=== PATIENT | female | born 1985 | race Caucasian/White ===

== ENCOUNTER → 2016-12-28 | Outpatient (CLI) | payer OTHER ==
--- NOTE | 2016-12-28 11:52 | XR ---
EXAMINATION TYPE: 2 views left wrist. 2 views left hand. DATE OF EXAM: 12/28/2016 11:36 AM COMPARISON: NONE HISTORY: 31-year-old female medial sided lump at the wrist, pain. FINDINGS: Left wrist: Minimal negative ulnar variance. Radiocarpal and distal radioulnar joints as well as the midcarpal co mpartment appear intact. No acute fracture, subluxation, or dislocation. Left hand: Joint spaces are preserved without periostitis or osteolysis. No soft tissue calcifications. No acute fracture or dislocation. IMPRESSION: Left wrist and hand without acute osseous abnormality seen.
== END | disposition home or self-care (01) ==
LOC: RADXRMAIN 11:18
PROVIDERS: ATTEND Physical Medicine & Rehabilitation
DX: M25.532 Pain in left wrist (principal)

== ENCOUNTER 2017-07-05 15:31 | Emergency (ER) | payer OTHER ==
[2017-07-05] MEDS ORDERED: ONDANSETRON 4 MG/2 ML VIAL IVP STA (16:01)
[2017-07-05] MEDS ORDERED: SODIUM CHLORIDE 0.9% 1,000 ML IV STA (16:01)
--- NOTE | 2017-07-05 16:12 | ED ---
General Adult HPI - General Chief complaint: Abdominal Pain Stated complaint: Abd Pain Time Seen by Provider: 07/05/17 15:51 Source: patient, RN notes reviewed Mode of arrival: ambulatory Limitations: no limitations - History of Present Illness Initial comments: Patient 32-year-old female who presents emergency room today with a chief complaint of bilateral flank pain over the last week. She does admit that she' s noticed foul-smelling urine. She states she has noticed that she's been running a fever over the last few days. Patient wasn't feeling nauseated. She does admit that she's been using [place] at home for the pain persisted lasted for 2 hours ago. She denies any other complaints or symptoms at this time. Patient denies any recent fever, chills, shortness of breath, chest pain, numbness or tingling, hematuria, constipation or diarrhea, headaches or visual changes, or any other complaints. - Related Data Home Medications Medication Instructions Recorded Confirmed Albuterol Inhaler [Ventolin Hfa 1 - 2 puff INHALATION RT-Q6H PRN 07/05/17 Inhaler] HYDROcodone/APAP 10-325MG [[place] 1 tab PO QID PRN 07/05/17 07/05/17 10-325] Previous Rx's Medication Instructions Recorded Ciprofloxacin HCl [Cipro] 500 mg PO Q12HR #28 day 07/05/17 Phenazopyridine [Pyridium] 100 mg PO TID 3 Days 07/05/17 Allergies Allergy/AdvReac Type Severity Reaction Status Date / Time naproxen AdvReac Nausea & Verified 07/05/17 16:16 Vomiting Review of Systems ROS Statement: Those systems with pertinent positive or pertinent negative responses have been documented in the HPI. ROS Other: All systems not noted in ROS Statement are negative. Past Medical History Past Medical History: COPD, GERD/Reflux, Thyroid Disorder Additional Past Medical History / Comment(s): 06/19/15 Pt presented to [facility] ER with R side flank pain starting yesterday. She has fever today. She believed she had a UTI- she has urgency and frequency. She has also been nauseated. Other HX: enlarged thryoid, emphysema, herniated discs, DDD, scoliosis, chronic back pain, sleep disturbance-sleep paralysis. History of Any Multi-Drug Resistant Organisms: None Reported Past Surgical History: No Surgical Hx Reported Additional Past Surgical History / Comment(s): Leep excision of the ect/ endocervix with colposcopy for high grade dysplasia of the cervix Past Anesthesia/Blood Transfusion Reactions: No Reported Reaction Past Psychological History: Anxiety Smoking Status: Current every day smoker Past Alcohol Use History: None Reported Past Drug Use History: None Reported - Past Family History Father Family Medical History: CVA/TIA, Diabetes Mellitus, Hypertension, Myocardial Infarction ([place]) Mother Family Medical History: Diabetes Mellitus, Hypertension General Exam - General Exam Comments Initial Comments: General: The patient is awake and alert, in no distress, and does not appear acutely ill. Eye: Pupils are equal, round and reactive to light, extra-ocular movements are intact. No nystagmus. There is normal conjunctiva bilaterally. No signs of icterus. Ears, nose, mouth and throat: There are moist mucous membranes and no oral lesions. Neck: The neck is supple, there is no tenderness or JVD. Cardiovascular: There is a regular rate and rhythm. No murmur, rub or gallop is appreciated. Respiratory: Lungs are clear to auscultation, respirations are non-labored, breath sounds are equal. No wheezes, stridor, rales, or rhonchi. Gastrointestinal: Normal exam. Normal bowel sounds. Abdomen soft on palpation. Patient does have tenderness greater in the right CVA and left. Mild tenderness suprapubic over the bladder. No rebound tenderness. No guarding. Musculoskeletal: Normal ROM, no tenderness. Strength 5/5. Sensation intact. Pulses equal bilaterally 2+. Neurological: A&O x 3. CN II-XII intact, There are no obvious motor or sensory deficits. Coordination appears grossly intact. Speech is normal. Skin: Skin is warm and dry and no rashes or lesions are noted. Psychiatric: Cooperative, appropriate mood & affect, normal judgment. Limitations: no limitations Course Vital Signs 07/05/17 07/05/17 15:43 18:01 Temperature 101.7 F H 98.1 F Pulse Rate 107 H 79 Respiratory 20 16 Rate Blood Pressure 125/83 102/57 O2 Sat by Pulse 97 98 Oximetry Medical Decision Making - Medical Decision Making Case discussed in detail with attending physician Dr. Vargas. Patient reexamined at this time shows no signs of distress resting comfortably. Patient 's labs been reviewed does show urinary tract infection. No elevated white count. Does have a low-grade fever. Patient doing much better after IV fluids. Given 2 g Rocephin here in the emergency room. Feels comfortable being discharged home. Advised to follow-up with family doctor next 1-2 days or return here to the emergency room if any symptoms increase or worsen. Patient states understanding and is in agreement. - Lab Data Result diagrams: 07/05/17 16:25 07/05/17 16:25 Lab Results 07/05/17 07/05/17 07/05/17 Range/Units 16:25 16:25 16:25 WBC 9.0 (3.8-10.6) k/uL RBC 4.14 (3.80-5.40) m/uL Hgb 13.2 (11.4-16.0) gm/dL Hct 38.9 (34.0-46.0) % MCV 93.8 (80.0-100.0) fL MCH 31.8 (25.0-35.0) pg MCHC 33.9 (31.0-37.0) g/dL RDW 13.5 (11.5-15.5) % Plt Count 300 (150-450) k/uL Neutrophils % 59 % Lymphocytes % 31 % Monocytes % 6 % Eosinophils % 1 % Basophils % 1 % Neutrophils # 5.3 (1.3-7.7) k/uL Lymphocytes # 2.8 (1.0-4.8) k/uL Monocytes # 0.5 (0-1.0) k/uL Eosinophils # 0.1 (0-0.7) k/uL Basophils # 0.1 (0-0.2) k/uL Sodium 138 (137-145) mmol/L Potassium 4.1 (3.5-5.1) mmol/L Chloride 106 (98-107) mmol/L Carbon Dioxide 21 L (22-30) mmol/L Anion Gap 11 mmol/L BUN 10 (7-17) mg/dL Creatinine 0.80 (0.52-1.04) mg/dL Est GFR (MDRD) Af Amer >60 (>60 ml/min/1.73 sqM) Est GFR (MDRD) Non-Af >60 (>60 ml/min/1.73 sqM) Glucose 105 H (74-99) mg/dL Calcium 9.0 (8.4-10.2) mg/dL Total Bilirubin 0.4 (0.2-1.3) mg/dL AST 29 (14-36) U/L ALT 56 H (9-52) U/L Alkaline Phosphatase 45 (38-126) U/L Total Protein 6.9 (6.3-8.2) g/dL Albumin 4.1 (3.5-5.0) g/dL Amylase 79 (30-110) U/L Lipase 137 (23-300) U/L Urine Color Urine Appearance (Clear) Urine pH (5.0-8.0) Ur Specific [place] (1.001-1.035) Urine Protein (Negative) Urine Glucose (UA) (Negative) Urine Ketones (Negative) Urine Blood (Negative) Urine Nitrite (Negative) Urine Bilirubin (Negative) Urine Urobilinogen (<2.0) mg/dL Ur Leukocyte Esterase (Negative) Urine RBC (0-5) /hpf Urine WBC (0-5) /hpf Ur Squamous Epith Cells (0-4) /hpf Urine Bacteria (None) /hpf Urine Mucus (None) /hpf Urine HCG, Qual Not Detected (Not Detectd) 07/05/17 Range/Units 16:25 WBC (3.8-10.6) k/uL RBC (3.80-5.40) m/uL Hgb (11.4-16.0) gm/dL Hct (34.0-46.0) % MCV (80.0-100.0) fL MCH (25.0-35.0) pg MCHC (31.0-37.0) g/dL RDW (11.5-15.5) % Plt Count (150-450) k/uL Neutrophils % % Lymphocytes % % Monocytes % % Eosinophils % % Basophils % % Neutrophils # (1.3-7.7) k/uL Lymphocytes # (1.0-4.8) k/uL Monocytes # (0-1.0) k/uL Eosinophils # (0-0.7) k/uL Basophils # (0-0.2) k/uL Sodium (137-145) mmol/L Potassium (3.5-5.1) mmol/L Chloride (98-107) mmol/L Carbon Dioxide (22-30) mmol/L Anion Gap mmol/L BUN (7-17) mg/dL Creatinine (0.52-1.04) mg/dL Est GFR (MDRD) Af Amer (>60 ml/min/1.73 sqM) Est GFR (MDRD) Non-Af (>60 ml/min/1.73 sqM) Glucose (74-99) mg/dL Calcium (8.4-10.2) mg/dL Total Bilirubin (0.2-1.3) mg/dL AST (14-36) U/L ALT (9-52) U/L Alkaline Phosphatase (38-126) U/L Total Protein (6.3-8.2) g/dL Albumin (3.5-5.0) g/dL Amylase (30-110) U/L Lipase (23-300) U/L Urine Color Yellow Urine Appearance Cloudy H (Clear) Urine pH 6.0 (5.0-8.0) Ur Specific [place] 1.018 (1.001-1.035) Urine Protein Negative (Negative) Urine Glucose (UA) Negative (Negative) Urine Ketones Negative (Negative) Urine Blood Trace H (Negative) Urine Nitrite Negative (Negative) Urine Bilirubin Negative (Negative) Urine Urobilinogen <2.0 (<2.0) mg/dL Ur Leukocyte Esterase Large H (Negative) Urine RBC 11 H (0-5) /hpf Urine WBC 118 H (0-5) /hpf Ur Squamous Epith Cells 1 (0-4) /hpf Urine Bacteria Rare H (None) /hpf Urine Mucus Few H (None) /hpf Urine HCG, Qual (Not Detectd) Disposition Clinical Impression: Acute pyelonephritis Disposition: HOME SELF-CARE Condition: Good Instructions: Urinary Tract Infection in Women (ED) Additional Instructions: Please use medication as discussed. Please follow-up with family doctor in the next 2 days. Please return to emergency room if the symptoms increase or worsen or for any other concerns. Prescriptions: Ciprofloxacin HCl [Cipro] 500 mg PO Q12HR #28 day Phenazopyridine [Pyridium] 100 mg PO TID 3 Days Referrals: None,Stated [Primary Care Provider] - 1-2 days Jaylin Morel MD [STAFF PHYSICIAN] - 1-2 days Time of Disposition: 18:17
[2017-07-05] MEDS ORDERED: IBUPROFEN IV 600 MG in SODIUM CHLORIDE 0.9% 250 ML IV ONE (16:30)
[2017-07-05 16:45] LABS: Basophils # (A) 0.1 k/uL (0-0.2); Basophils % (A) 1 %; CH 32.7; CHCM 34.9; Eosinophils # (A) 0.1 k/uL (0-0.7); Eosinophils % (A) 1 %; HCT 38.9 % (34.0-46.0); HDW 2.26; HGB 13.2 gm/dL (11.4-16.0); Luc # (Auto) 0.24; Luc % (Auto) 3; Lymphocytes # (A) 2.8 k/uL (1.0-4.8); Lymphocytes % (A) 31 %; MCH 31.8 pg (25.0-35.0); MCHC 33.9 g/dL (31.0-37.0); MCV 93.8 fL (80.0-100.0); Mean Platelet Volume 7.6; Monocytes # (A) 0.5 k/uL (0-1.0); Monocytes % (A) 6 %; Neutrophils # (A) 5.3 k/uL (1.3-7.7); Neutrophils % (A) 59 %; RBC 4.14 m/uL (3.80-5.40); RDW 13.5 % (11.5-15.5); WBC (Perox) 9.13
[2017-07-05 16:57] LABS: ALT 56 U/L (9-52); AST 29 U/L (14-36); Alkaline Phosphatase 45 U/L (38-126); Amylase 79 U/L (30-110); Anion Gap 11 mmol/L; Appearance,Urine Cloudy (Clear); Bacteria,Urine Rare /hpf; Bilirubin,Urine Negative (Negative); Blood Urea Nitrogen 10 mg/dL (7-17); Carbon Dioxide 21 mmol/L (22-30); Chloride 106 mmol/L (98-107); Glucose 105 mg/dL (74-99); Glucose,Urine (UA) Negative (Negative); Ketones,Urine Negative (Negative); Leukocyte Esterase,Urine Large (Negative); Mucus,Urine Few /hpf; Nitrite,Urine Negative (Negative); Non-African American GFR(MDRD) >60 (>60 ml/min/1.73 sqM); Particle Count 9088; Potassium 4.1 mmol/L (3.5-5.1); Protein,Urine Negative (Negative); RBC,Urine 11 /hpf (0-5); Sodium 138 mmol/L (137-145); Specific Gravity,Urine 1.018 (1.001-1.035); Squamous Epithelial Cell,Urine 1 /hpf (0-4); Total Bilirubin 0.4 mg/dL (0.2-1.3); Total Protein 6.9 g/dL (6.3-8.2); UA Billing (MACRO vs. MICRO) MICRO; Urobilinogen,Urine <2.0 mg/dL (<2.0); WBC,Urine 118 /hpf (0-5)
[2017-07-05] MEDS ORDERED: cefTRIAXone 2,000 MG in SODIUM CHLORIDE 0.9% 100 ML IVPB STA (17:08)
--- NOTE | 2017-07-05 17:35 | XR ---
EXAMINATION TYPE: XR KUB DATE OF EXAM: 07/05/2017 COMPARISON: 06/19/2015 INDICATION: Abdomen pain flank pain TECHNIQUE: Single view abdomen upright view FINDINGS: There is a normal bowel gas pattern. Psoas margins are normal. No organomegaly is present. IMPRESSION: 1. Unremarkable Abdomen
[2017-07-05] MEDS ORDERED: HYDROmorphone 1 MG/ML 1 ML SYRINGE IVP STA (17:43)
[2017-07-05] MEDS ORDERED: IBUPROFEN IV 600 MG in SODIUM CHLORIDE 0.9% 250 ML IV SCH (18:00)
[2017-07-05 18:02] VITALS: PULSE 79; RESP 16
[2017-07-05 19:12] VITALS: BP 120/70; TEMP 98
== END 2017-07-05 19:11 | disposition home or self-care (01) ==
LOC: EC 15:31
DX: N10 Acute pyelonephritis (principal); F17.200 Nicotine dependence, unspecified, uncomplicated; Z79.899 Other long term (current) drug therapy; Z88.6 Allergy status to analgesic agent
CPT/HCPCS: 36415; 80053; 82150; 83690; 85025; 81001; 81025; 87040; 87086; 87077; 87186; 74000; 99284; 96365; 96367; 96375 ×2; 96361; J2405; J0696; J1170; J1741

== ENCOUNTER 2018-08-03 09:50 | Emergency (ER) | payer OTHER ==
[2018-08-03] MEDS ORDERED: IPRATROPIUM-ALBUTEROL 3 ML NEB INHALATION STA (10:13)
--- NOTE | 2018-08-03 10:30 | ED ---
General Adult HPI - General Chief complaint: Chest Pain Stated complaint: cough SOB Time Seen by Provider: 08/03/18 10:08 Source: patient, RN notes reviewed Mode of arrival: wheelchair Limitations: no limitations - History of Present Illness Initial comments: Patient's 33-year-old female presented to the emergency room today with a chief complaint of cough congestion over the last 2 weeks. Patient does admit to a history of emphysema. She states she does not have breathing treatments at home. She states that she's had increased cough congestion with yellow and green sputum production. Patient states her last few days she's been having increased chest pain. States it hurts when she takes deep breath or coughs. Patient denies any other complaints or symptoms. Patient denies any recent fever , chills, back pain, abdominal pain, nausea or vomiting, numbness or tingling, dysuria or hematuria, constipation or diarrhea, headaches or visual changes, or any other complaints. - Related Data Home Medications Medication Instructions Recorded Confirmed Aspirin 325 mg PO DAILY 08/03/18 08/03/18 Previous Rx's Medication Instructions Recorded Albuterol Inhaler [Ventolin Hfa 1 - 2 puff INHALATION Q4-6H PRN #1 08/03/18 Inhaler] inhaler Albuterol Nebulized [Ventolin 2.5 mg INHALATION Q4H PRN 10 Days 08/03/18 Nebulized] nebu Azithromycin [Zithromax Z-pack] 0 mg PO DIRECTED #6 tab 08/03/18 predniSONE 50 mg PO DAILY #5 tab 08/03/18 Allergies Allergy/AdvReac Type Severity Reaction Status Date / Time naproxen AdvReac Nausea & Verified 07/05/17 16:16 Vomiting Review of Systems ROS Statement: Those systems with pertinent positive or pertinent negative responses have been documented in the HPI. ROS Other: All systems not noted in ROS Statement are negative. Past Medical History Past Medical History: COPD, GERD/Reflux, Thyroid Disorder Additional Past Medical History / Comment(s): 06/19/15 Pt presented to [facility] ER with R side flank pain starting yesterday. She has fever today. She believed she had a UTI- she has urgency and frequency. She has also been nauseated. Other HX: enlarged thryoid, emphysema, herniated discs, DDD, scoliosis, chronic back pain, sleep disturbance-sleep paralysis. History of Any Multi-Drug Resistant Organisms: None Reported Past Surgical History: No Surgical Hx Reported Additional Past Surgical History / Comment(s): Leep excision of the ect/ endocervix with colposcopy for high grade dysplasia of the cervix Past Anesthesia/Blood Transfusion Reactions: No Reported Reaction Past Psychological History: Anxiety Smoking Status: Current every day smoker Past Alcohol Use History: None Reported Past Drug Use History: None Reported - Past Family History Father Family Medical History: CVA/TIA, Diabetes Mellitus, Hypertension, Myocardial Infarction ([place]) Mother Family Medical History: Diabetes Mellitus, Hypertension General Exam - General Exam Comments Initial Comments: General: The patient is awake and alert, in no distress, and does not appear acutely ill. Eye: Extra-ocular movements are intact. No nystagmus. There is normal conjunctiva bilaterally. No signs of icterus. Ears, nose, mouth and throat: There are moist mucous membranes and no oral lesions. Neck: The neck is supple, there is no tenderness or JVD. Cardiovascular: There is a regular rate and rhythm. No murmur, rub or gallop is appreciated. Respiratory: Lungs are clear to auscultation, respirations are non-labored, breath sounds are equal. No wheezes, stridor, rales, or rhonchi. Musculoskeletal: Normal ROM, no tenderness. Sensation intact. Strength 5/5. Pulses equal bilaterally 2+. Neurological: A&O x 3. CN II-XII intact, There are no obvious motor or sensory deficits. Coordination appears grossly intact. Speech is normal. Skin: Skin is warm and dry and no rashes or lesions are noted. Psychiatric: Cooperative, appropriate mood & affect, normal judgment. Limitations: no limitations Course Vital Signs 08/03/18 08/03/18 08/03/18 09:57 10:18 10:41 Temperature 98.3 F Pulse Rate 103 H 106 H Respiratory 18 20 Rate Blood Pressure 118/76 O2 Sat by Pulse 98 Oximetry 08/03/18 10:52 Temperature Pulse Rate 109 H Respiratory Rate Blood Pressure O2 Sat by Pulse Oximetry Medical Decision Making - Medical Decision Making Case discussed in detail with attending physician Dr. Sheikh. Patient reexamined at this time shows no signs of distress resting comfortably. She does admit to improvement after breathing treatment. Patient's chest x-ray does reveal a right-sided pneumonia which is where patient's pain is located. Patient will be discharged home given a dose of Rocephin and solu Medrol here in emergency room continued on antibiotics and steroids at home along with albuterol inhaler and treatment. She is advised follow-up family doctor in the next 2 days return to emergency room symptoms increase worsen. States understanding and is in agreement. Disposition Clinical Impression: CAP (community acquired pneumonia) Disposition: HOME SELF-CARE Condition: Good Instructions: Community Acquired Pneumonia (ED) Additional Instructions: Please use medication as discussed. Please follow-up with family doctor in the next 2 days of symptoms have not improved. Please return to emergency room if the symptoms increase or worsen or for any other concerns. Prescriptions: Albuterol Inhaler [Ventolin Hfa Inhaler] 1 - 2 puff INHALATION Q4-6H PRN #1 inhaler PRN Reason: Cough Albuterol Nebulized [Ventolin Nebulized] 2.5 mg INHALATION Q4H PRN 10 Days nebu PRN Reason: Cough Azithromycin [Zithromax Z-pack] 0 mg PO DIRECTED #6 tab predniSONE 50 mg PO DAILY #5 tab Is patient prescribed a controlled substance at d/c from ED?: No Referrals: None,Stated [Primary Care Provider] - 1-2 days Jaylin Morel MD [STAFF PHYSICIAN] - 1-2 days Time of Disposition: 11:38
--- NOTE | 2018-08-03 11:31 | XR ---
EXAMINATION TYPE: XR chest 2V DATE OF EXAM: 08/03/2018 COMPARISON: 06/23/2015 HISTORY: 33-year-old female with cough TECHNIQUE: PA and lateral views FINDINGS: The cardiomediastinal silhouette, aorta, and pulmonary vasculature are within normal limits. Patchy a irspace opacities present at both lung bases. No pleural effusion. IMPRESSION: Patchy bibasilar infiltrates. Findings could represent aspiration or infectious pneumonitis.
[2018-08-03] MEDS ORDERED: methylPREDNISolone SOD SUCCI 125 MG/2 ML VIAL IM STA (11:36)
[2018-08-03] MEDS ORDERED: cefTRIAXone 1,000 MG VIAL (IM USE) IM STA (11:36)
[2018-08-03 11:53] VITALS: BP 100/56; PULSE 72; RESP 18; TEMP 99.3
== END 2018-08-03 12:07 | disposition home or self-care (01) ==
LOC: EC 09:50
DX: J18.9 Pneumonia, unspecified organism (principal); F17.200 Nicotine dependence, unspecified, uncomplicated; Z79.82 Long term (current) use of aspirin; Z88.6 Allergy status to analgesic agent
CPT/HCPCS: 94640; 71046; 99285; 96372 ×2; J2930; J0696

== ENCOUNTER 2018-11-10 03:03 | Emergency (ER) | payer OTHER ==
[2018-11-10 05:29] VITALS: BP 117/65; PULSE 98; RESP 17; TEMP 98.7
[2018-11-10] MEDS ORDERED: IBUPROFEN 600 MG TAB PO ONE (05:30)
[2018-11-10] MEDS ORDERED: SULFAMETHOX-TMP 800-160MG 1 EACH TAB ONE (05:30)
--- NOTE | 2018-11-10 12:22 | XR ---
EXAM: XR Right Ankle Complete, 3 or More Views CLINICAL HISTORY: tripping injury TECHNIQUE: Frontal, lateral and oblique views of the right ankle. COMPARISON: No relevant prior studies available. FINDINGS: Bones/joints: Unremarkable. No fracture. No dislocation. Soft tissues: Unremarkable. IMPRESSION: No fracture
== END 2018-11-10 05:30 | disposition home or self-care (01) ==
LOC: EC 03:03
DX: S99.911A Unspecified injury of right ankle, initial encounter (principal); F17.200 Nicotine dependence, unspecified, uncomplicated; Z98.890 Other specified postprocedural states; Z88.6 Allergy status to analgesic agent; X50.1XXA Overexertion from prolonged static or awkward postures, initial encounter; Y93.89 Activity, other specified
CPT/HCPCS: 99283

== ENCOUNTER 2019-01-31 12:21 | Emergency (ER) | payer OTHER ==
[2019-01-31 12:31] VITALS: BP 109/74; PULSE 95; RESP 18; TEMP 98.7
[2019-01-31] MEDS ORDERED: DEXAMETHASONE 4 MG TAB PO STA (13:16)
--- NOTE | 2019-01-31 13:17 | ED ---
ENT HPI - General Chief complaint: ENT Stated complaint: SORE THROAT Time Seen by Provider: 01/31/19 12:34 Source: patient Mode of arrival: ambulatory Limitations: no limitations - History of Present Illness Initial comments: 33-year-old feel presented today for chief complaint of sore throat 2 days, she states she has had a sore throat for the past 2 days, she states increases the swelling, patient denies difficulty swallowing or breathing. Patient denies rash. Patient denies fever, states she has had chills. Patient denies any swelling of the neck. Patient denies any dental pain. Patient denies any lesions of the oropharynx however she does note that her tonsils were red and enlarged. Patient states her symptoms are identical to when she's had strep pharyngitis in the past. Remaining review of systems negative, Patient denies any recent darkening of urine, fever, chills, shortness of breath, chest pain, back pain, abdominal pain, nausea or vomiting, numbness or tingling, dysuria or hematuria, constipation or diarrhea, headaches or visual changes, or any other complaints. - Related Data Home Medications Medication Instructions Recorded Confirmed Acetaminophen Tab [Tylenol] 650 mg PO Q8H 01/31/19 01/31/19 Ibuprofen [Motrin Ib] 600 mg PO Q8H 01/31/19 01/31/19 Previous Rx's Medication Instructions Recorded Amoxicillin 500 mg PO Q12HR 10 Days #20 cap 01/31/19 Allergies Allergy/AdvReac Type Severity Reaction Status Date / Time naproxen AdvReac Nausea & Verified 07/05/17 16:16 Vomiting Review of Systems ROS Statement: Those systems with pertinent positive or pertinent negative responses have been documented in the HPI. ROS Other: All systems not noted in ROS Statement are negative. Past Medical History Past Medical History: COPD, GERD/Reflux, Thyroid Disorder Additional Past Medical History / Comment(s): 06/19/15 Pt presented to [facility] ER with R side flank pain starting yesterday. She has fever today. She believed she had a UTI- she has urgency and frequency. She has also been nauseated. Other HX: enlarged thryoid, emphysema, herniated discs, DDD, scoliosis, chronic back pain, sleep disturbance-sleep paralysis. History of Any Multi-Drug Resistant Organisms: None Reported Past Surgical History: No Surgical Hx Reported Additional Past Surgical History / Comment(s): Leep excision of the ect/endocervix with colposcopy for high grade dysplasia of the cervix Past Anesthesia/Blood Transfusion Reactions: No Reported Reaction Past Psychological History: Anxiety Smoking Status: Current every day smoker Past Alcohol Use History: None Reported Past Drug Use History: None Reported - Past Family History Father Family Medical History: CVA/TIA, Diabetes Mellitus, Hypertension, Myocardial Infarction ([place]) Mother Family Medical History: Diabetes Mellitus, Hypertension General Exam - General Exam Comments Initial Comments: General: The patient is awake and alert, in no distress, and does not appear acutely ill. Eye: +3 mm pupils are equal, round and reactive to light, extra-ocular movements are intact. No nystagmus. There is normal conjunctiva bilaterally. No signs of icterus. No photophobia Ears, nose, mouth and throat: There are moist mucous membranes and no oral lesions. Oropharynx was not erythematous there is no tonsillar enlargement exudates or lesions. Uvula midline. Tympanic membranes are not erythematous or is no effusions bulging or retraction. No tenderness to palpation of the mastoid. No anterior cervical lymphadenopathy. Rhinorrhea, clear and bilateral nares. No tripoding, no drooling. Neck: The neck is supple, there is no tenderness or JVD. No nuchal rigidity negative Brudzinski and Kernig Cardiovascular: There is a regular rate and rhythm. No murmur, rub or gallop is appreciated. Respiratory: Lungs are clear to auscultation, respirations are non-labored, breath sounds are equal. No wheezes, stridor, rales, or rhonchi. No retractions or abdominal breathing. Gastrointestinal: Soft, non-distended, non-tender abdomen without masses or organomegaly noted. There is no rebound or guarding present. Bowel sounds are unremarkable. Musculoskeletal: Normal ROM, no tenderness. Strength 5/5. Sensation intact. Radial pulses equal bilaterally 2+. Neurological: A&O x 3. CN II-XII intact, There are no obvious motor or sensory deficits. Coordination appears grossly intact. Speech appears normal, no muffling. Skin: Skin is warm and dry and no rashes or lesions are noted. No extremity edema Psychiatric: Cooperative Limitations: no limitations Course Vital Signs 01/31/19 12:29 Temperature 98.7 F Pulse Rate 95 Respiratory 18 Rate Blood Pressure 109/74 O2 Sat by Pulse 100 Oximetry Medical Decision Making - Medical Decision Making 33-year-old female presenting today for chief complaint sore throat. Strep test positive, uvula midline on examination, tonsillar enlarged however are not obstructing airway. No evidence of peritonsillar abscess on examination. No muffled voice. Patient denies a difficulty swallowing or breathing. No compressive symptoms. Patient afebrile. Nontoxic. This time feel patient is stable for discharge with outpatient follow-up as well as a prescription for amoxicillin for treatment of infection. Patient has no other complaints agreed with plan as well as outpatient follow-up. Patient given Decadron and was discharged in stable condition appearing well after discussed the case with me provider Dr. Sheikh. - Lab Data Lab Results 01/31/19 01/31/19 Range/Units 12:45 12:45 Influenza Type A RNA Not Detected (Not Detectd) Influenza Type B (PCR) Not Detected (Not Detectd) Group A Strep Rapid Positive A (Negative) Disposition Clinical Impression: Strep pharyngitis Disposition: HOME SELF-CARE Condition: Good Instructions (If sedation given, give patient instructions): Strep Throat (ED) Additional Instructions: Please use medication as discussed. Please follow-up with family doctor in the next 2 days of symptoms have not improved. Please return to emergency room if the symptoms increase or worsen or for any other concerns. Prescriptions: Amoxicillin 500 mg PO Q12HR 10 Days #20 cap Is patient prescribed a controlled substance at d/c from ED?: No Referrals: None,Stated [Primary Care Provider] - 1-2 days [facility] [NON-STAFF] - 1-2 days Time of Disposition: 13:17
== END 2019-01-31 13:33 | disposition home or self-care (01) ==
LOC: EC 12:21
DX: J02.0 Streptococcal pharyngitis (principal); F17.200 Nicotine dependence, unspecified, uncomplicated; Z79.1 Long term (current) use of non-steroidal anti-inflammatories (NSAID); Z79.899 Other long term (current) drug therapy; Z88.6 Allergy status to analgesic agent
CPT/HCPCS: 87430; 87502; 99283; J8540

== ENCOUNTER 2019-04-08 12:59 | Emergency (ER) | payer OTHER ==
[2019-04-08 13:30] VITALS: BP 131/85; PULSE 101; RESP 18; TEMP 98.3
[2019-04-08] MEDS ORDERED: ACET/COD 300 MG/30 MG STARTER PACK 6 TAB BTL PO STA (13:56)
--- NOTE | 2019-04-08 14:00 | ED ---
ENT HPI - General Chief complaint: ENT Stated complaint: tooth pain Time Seen by Provider: 04/08/19 13:37 Source: patient, RN notes reviewed Mode of arrival: ambulatory Limitations: no limitations - History of Present Illness Initial comments: 33-year-old female presents emergency department for dental pain. Patient has impacted, cracked dentition. Patient was advised that she needs to have her wisdom teeth removed. Patient reports increasing pain last few days no fevers or chills no facial swelling at this time no difficulty swallowing. - Related Data Home Medications Medication Instructions Recorded Confirmed Acetaminophen Tab [Tylenol] 650 mg PO Q8H 01/31/19 01/31/19 Ibuprofen [Motrin Ib] 600 mg PO Q8H 01/31/19 01/31/19 Previous Rx's Medication Instructions Recorded Amoxicillin 500 mg PO Q12HR 10 Days #20 cap 01/31/19 Penicillin V Potassium [Pen Vee K] 500 mg PO QID #40 tablet 04/08/19 traMADol HCl [Ultram] 50 mg PO Q6H PRN #12 tab 04/08/19 Allergies Allergy/AdvReac Type Severity Reaction Status Date / Time naproxen AdvReac Nausea & Verified 04/08/19 13:30 Vomiting Review of Systems ROS Statement: Those systems with pertinent positive or pertinent negative responses have been documented in the HPI. ROS Other: All systems not noted in ROS Statement are negative. Past Medical History Past Medical History: COPD, GERD/Reflux, Thyroid Disorder Additional Past Medical History / Comment(s): 06/19/15 Pt presented to [facility] ER with R side flank pain starting yesterday. She has fever today. She believed she had a UTI- she has urgency and frequency. She has also been nauseated. Other HX: enlarged thryoid, emphysema, herniated discs, DDD, scoliosis, chronic back pain, sleep disturbance-sleep paralysis. History of Any Multi-Drug Resistant Organisms: None Reported Past Surgical History: No Surgical Hx Reported Additional Past Surgical History / Comment(s): Leep excision of the ect/endocervix with colposcopy for high grade dysplasia of the cervix Past Anesthesia/Blood Transfusion Reactions: No Reported Reaction Past Psychological History: Anxiety Smoking Status: Current every day smoker Past Alcohol Use History: None Reported Past Drug Use History: Marijuana - Past Family History Father Family Medical History: CVA/TIA, Diabetes Mellitus, Hypertension, Myocardial Infarction ([place]) Mother Family Medical History: Diabetes Mellitus, Hypertension General Exam Limitations: no limitations General appearance: alert, in no apparent distress Head exam: Present: atraumatic, normocephalic, normal inspection Eye exam: Present: normal appearance, PERRL, EOMI. Absent: scleral icterus, conjunctival injection, periorbital swelling ENT exam: Present: mucous membranes moist. Absent: normal oropharynx (Dental fracture 1, no drainable abscess) Neck exam: Present: normal inspection. Absent: tenderness, meningismus, lymphadenopathy Respiratory exam: Present: normal lung sounds bilaterally. Absent: respiratory distress, wheezes, rales, rhonchi, stridor Cardiovascular Exam: Present: regular rate, normal rhythm, normal heart sounds. Absent: systolic murmur, diastolic murmur, rubs, gallop, clicks Course Vital Signs 04/08/19 13:27 Temperature 98.3 F Pulse Rate 101 H Respiratory 18 Rate Blood Pressure 131/85 O2 Sat by Pulse 100 Oximetry Medical Decision Making - Medical Decision Making 33-year-old female presented for abdominal pain. Patient is dental fracture concern for underlying infection. Patient will be placed on antibiotics and follow-up with oral surgery. Disposition Clinical Impression: Pain, dental Disposition: HOME SELF-CARE Condition: Stable Instructions (If sedation given, give patient instructions): Toothache (ED) Additional Instructions: Please return to the Emergency Department if symptoms worsen or any other concerns. Prescriptions: Penicillin V Potassium [Pen Vee K] 500 mg PO QID #40 tablet traMADol HCl [Ultram] 50 mg PO Q6H PRN #12 tab PRN Reason: Pain Is patient prescribed a controlled substance at d/c from ED?: Yes When asked, does pt state using other controlled substances?: No If prescribed controlled substance>3 days was MAPS reviewed?: Prescribed <3 Days Referrals: None,Stated [Primary Care Provider] - 1-2 days Cullen Jenkins DDS [STAFF PHYSICIAN] - 1-2 days Time of Disposition: 13:58
== END 2019-04-08 14:09 | disposition home or self-care (01) ==
LOC: EC 12:59
DX: K08.89 Other specified disorders of teeth and supporting structures (principal); F17.200 Nicotine dependence, unspecified, uncomplicated; Z79.1 Long term (current) use of non-steroidal anti-inflammatories (NSAID); Z79.899 Other long term (current) drug therapy; Z88.6 Allergy status to analgesic agent
CPT/HCPCS: 99282

== ENCOUNTER 2019-08-16 16:47 | Emergency (ER) | payer OTHER ==
[2019-08-16 17:15] VITALS: BP 133/85; PULSE 101; RESP 20; TEMP 99.3
[2019-08-16] MEDS ORDERED: ACETAMINOPHEN TAB 325 MG TAB PO STA (17:30)
[2019-08-16] MEDS ORDERED: CYCLOBENZAPRINE 10MG STARTER 3 TAB BTL PO STA (17:31)
--- NOTE | 2019-08-16 17:31 | ED ---
Back Pain HPI - General Chief Complaint: Back Pain/Injury Stated Complaint: fall/back & head pain Time Seen by Provider: 08/16/19 17:19 Source: patient Limitations: no limitations - History of Present Illness Initial Comments: 34-year-old female presenting to emergency room for evaluation of fall. Patient states that she was in the shower when she slipped ago she slipped on water falling into a table she has the bathroom. Patient denies loss of consciousness. She denies any headache nausea vomiting dizziness. Denies any visual changes speech changes sensation deficits or weakness. Patient states she has had some neck stiffness and pain since.Denies any pain of the lower back, vomiting. Patient states the fall occurred a day ago. Patient states the pain persisted today and she had upper back pain she felt it was appropriate to come to emergency department for further evaluation. Patient denies any other complaints. Patient appears well and laboratory no signs acute distress on arrival. - Related Data Home Medications Medication Instructions Recorded Confirmed Acetaminophen Tab [Tylenol] 650 mg PO Q8H 01/31/19 01/31/19 Ibuprofen [Motrin Ib] 600 mg PO Q8H 01/31/19 01/31/19 Previous Rx's Medication Instructions Recorded Amoxicillin 500 mg PO Q12HR 10 Days #20 cap 01/31/19 Penicillin V Potassium [Pen Vee K] 500 mg PO QID #40 tablet 04/08/19 traMADol HCl [Ultram] 50 mg PO Q6H PRN #12 tab 04/08/19 Allergies Allergy/AdvReac Type Severity Reaction Status Date / Time naproxen AdvReac Nausea & Verified 08/16/19 17:15 Vomiting Review of Systems ROS Statement: Those systems with pertinent positive or pertinent negative responses have been documented in the HPI. ROS Other: All systems not noted in ROS Statement are negative. Past Medical History Past Medical History: COPD, GERD/Reflux, Thyroid Disorder Additional Past Medical History / Comment(s): 06/19/15 Pt presented to [facility] ER with R side flank pain starting yesterday. She has fever today. She believed she had a UTI- she has urgency and frequency. She has also been nauseated. Other HX: enlarged thryoid, emphysema, herniated discs, DDD, scoliosis, chronic back pain, sleep disturbance-sleep paralysis. History of Any Multi-Drug Resistant Organisms: None Reported Past Surgical History: No Surgical Hx Reported Additional Past Surgical History / Comment(s): Leep excision of the ect/endocervix with colposcopy for high grade dysplasia of the cervix Past Anesthesia/Blood Transfusion Reactions: No Reported Reaction Past Psychological History: Anxiety Smoking Status: Current every day smoker Past Alcohol Use History: None Reported Past Drug Use History: Marijuana - Past Family History Father Family Medical History: CVA/TIA, Diabetes Mellitus, Hypertension, Myocardial Infarction ([place]) Mother Family Medical History: Diabetes Mellitus, Hypertension General Exam - General Exam Comments Initial Comments: General: The patient is awake and alert, in no distress, and does not appear acutely ill. Eye: +3mm pupils are equal, round and reactive to light, extra-ocular movements are intact. No nystagmus. There is normal conjunctiva bilaterally. No signs of icterus. Ears, nose, mouth and throat: There are moist mucous membranes and no oral lesions. No raccoon or [place] sign. No scalp contusions [place] lacerations or abrasions. Neck: The neck is supple, there is no tenderness or JVD. Paravertebral tenderness on the right side of the cervical spine. No midline tenderness. Patient is able to fully range the cervical spine without difficulty. Cardiovascular: There is a regular rate and rhythm. No murmur, rub or gallop is appreciated. Respiratory: Lungs are clear to auscultation, respirations are non-labored, breath sounds are equal. No wheezes, stridor, rales, or rhonchi. Gastrointestinal: Soft, non-distended, non-tender abdomen without masses or organomegaly noted. There is no rebound or guarding present. No CVA tenderness. Bowel sounds are unremarkable. Musculoskeletal: Normal ROM, no tenderness. Strength 5/5. Sensation intact. Radial pulses equal bilaterally 2+. Neurological: A&O x 3. CN II-XII intact, There are no obvious motor or sensory deficits. Coordination appears grossly intact. Speech is normal. Skin: Skin is warm and dry and no rashes or lesions are noted. Psychiatric: Cooperative, appropriate mood & affect, normal judgment. Limitations: no limitations Course Vital Signs 08/16/19 17:13 Temperature 99.3 F Pulse Rate 101 H Respiratory 20 Rate Blood Pressure 133/85 O2 Sat by Pulse 100 Oximetry Medical Decision Making - Medical Decision Making 34-year-old female presenting for fall with head neck and upper back pain. Patient denies loss of conscious. CT of the brain and C-spine negative for acute process. Able to range all difficulty at the cervical spine. C-spine cleared. No thoracic fractures or malalignment of the spine. Patient has no other complaints patient provided Flexeril. Instructed to take ibuprofen ove [id number]. Follow-up with primary care provider 2 days. Patient is agreeable to plan discharge. Discusses attempt P she was discharged appearing well Disposition Clinical Impression: Fall, Upper back pain, Neck pain Disposition: HOME SELF-CARE Condition: Good Instructions (If sedation given, give patient instructions): Cervical Strain (ED) Additional Instructions: Please use medication as discussed. Please follow-up with family doctor in the next 2 days.. Please return to emergency room if the symptoms increase or worsen or for any other concerns. Is patient prescribed a controlled substance at d/c from ED?: No Referrals: Gisel Kirkland MD [Primary Care Provider] - 1-2 days Time of Disposition: 20:16
--- NOTE | 2019-08-16 19:51 | XR ---
EXAMINATION TYPE: XR thoracic spine complete DATE OF EXAM: 08/16/2019 CLINICAL HISTORY: Back pain after falling from shower injury 2 days ago. TECHNIQUE: Frontal, lateral, and swimmer's view of thoracic spine are obtained. COMPARISON: Thoracic spine x-ray number 21/11/2009.. FINDINGS: Thoracic spine show slight scoliotic curvature upper thoracic levels without evidence of ac duckwater fracture or dislocation. Vertebral body heights and disc space heights are preserved. Mild anter ior spurring in the lower thoracic spine is present. Visualized ribs are unremarkable bilaterally. IMPRESSION: No acute fracture or dislocation is seen in the thoracic spine.
--- NOTE | 2019-08-16 20:05 | CT ---
EXAMINATION TYPE: CT brain rachel wo con DATE OF EXAM: 08/16/2019 COMPARISON: 11/05/2012.1 6 HISTORY: Fall with head and neck pain. CT DLP: 1228.2 mGycm Automated exposure control for dose reduction was used. TECHNIQUE: CT scan of the head and cervical spine are performed without contrast. FINDINGS: There is no acute intracranial hemorrhage, mass effect, or midline shift identified. The ventricles and sulci are within normal limits in size. The globes are intact and the visualized sin uses are clear. Cervical spine is visualized in its entirety from C1 through upper thoracic levels and demonstrates s atisfactory alignment without evidence of acute fracture or dislocation. Prevertebral soft tissue ap pears within normal limits. The C1-C2 articulation is unremarkable. IMPRESSION: 1. There is no acute fracture or dislocation evident in the cervical spine. 2. No acute intracranial hemorrhage, mass effect, or midline shift is seen.
== END 2019-08-16 20:27 | disposition home or self-care (01) ==
LOC: EC 16:47
DX: M54.2 Cervicalgia (principal); M54.9 Dorsalgia, unspecified; F17.200 Nicotine dependence, unspecified, uncomplicated; Z88.6 Allergy status to analgesic agent; W01.0XXA Fall on same level from slipping, tripping and stumbling without subsequent striking against object, initial encounter; Y92.002 Bathroom of unspecified non-institutional (private) residence as the place of occurrence of the external cause
CPT/HCPCS: 70450; 72072; 72125; 99284

== ENCOUNTER → 2019-10-06 | Outpatient (CLI) | payer OTHER ==
--- NOTE | 2019-10-06 14:59 | US ---
EXAMINATION TYPE: US thyroid st tissue head/neck DATE OF EXAM: 10/06/2019 COMPARISON: Thyroid ultrasound of 2011 CLINICAL HISTORY: R22.0 SWELLING. GLAND SIZE: Right Lobe: 4.6 x 1.8 x 1.7 cm Overall Parenchyma: homogenous Left Lobe: 4.6 x 0.8 x 1.2 cm Overall Parenchyma: homogeneous Isthmus Thickness: 0.2 cm NODULES RIGHT: # of nodules measured on right: 3 1. 0.6 X 0.6 x 0.6 cm hypoechoic solid nodule at the upper pole with well-defined margins. This no dule is wider than tall and shows no intranodular vascularity. Prior size: 0.6 cm 2. 1.1 X 0.7 x 1.0 cm hypoechoic mixed nodule at the upper, mid pole with well-defined margins. Thi s nodule is wider than tall and shows intranodular vascularity. Prior size: 0.9 cm 3. 2.3 X 1.5 x 1.5 cm isoechoic solid nodule at the lower pole with well-defined margins. This nodu le is wider than tall and shows no intranodular vascularity. Prior size: 1.6 cm LEFT: # of nodules measured on left: 2 1. 0.6 X 0.6 x 0.5 cm anechoic cystic nodule at the lateral pole with well-defined margins. This n odule is wider than tall and shows no intranodular vascularity. 2. 0.8 X 0.5 x 0.6 cm anechoic cystic nodule at the lateral pole with well-defined margins. This no dule is taller than wide and shows no intranodular vascularity. ISTHMUS: # of nodules measured in the isthmus: 0 Bilateral neck scanned, no evidence of lymphadenopathy. IMPRESSION: Redemonstration of a multinodular goiter. The majority of the thyroid nodules are stable with interval growth of the right lower pole thyroid nodule now measuring 2.3 cm. Fine-needle aspirat ion could be considered for this solid nodule.
== END | disposition home or self-care (01) ==
LOC: RADUSWWP 13:40
PROVIDERS: ATTEND Internal Medicine
DX: E04.2 Nontoxic multinodular goiter (principal)
CPT/HCPCS: 76536

== ENCOUNTER 2019-11-17 17:52 | Emergency (ER) | payer OTHER ==
[2019-11-17 17:55] VITALS: BP 117/73; PULSE 84; RESP 20; TEMP 98.7
[2019-11-17] MEDS ORDERED: ACET/COD 300 MG/30 MG STARTER PACK 6 TAB BTL PO STA (18:09)
[2019-11-17] MEDS ORDERED: BUPIVACAINE (PF) 0.5% 30 ML VIAL SQ STA (18:13)
[2019-11-17] MEDS ORDERED: PENICILLIN VK 500MG STARTER 4 TAB BTL PO STA (18:13)
--- NOTE | 2019-11-17 18:26 | ED ---
General Adult HPI - General Chief complaint: Dental/Oral Stated complaint: Dental pain Time Seen by Provider: 11/17/19 17:59 Source: patient Mode of arrival: ambulatory Limitations: no limitations - History of Present Illness Initial comments: 34-year-old female patient presents to the emergency department today for evaluation of right upper dental pain. Patient states she's been having the pain since this morning. Denies any facial swelling. Denies fever or chills. Denies any trismus or difficulty swallowing. Patient does have a known impacted wisdom tooth. States she is on the waiting list for the oral surgeon. States that she did try aspirin and Tylenol for her pain but it did not help. Patient denies any recent rash, shortness breath, chest pain, abdominal pain, nausea, vomiting, diarrhea, constipation, back pain, numbness, tingling, dizziness, weakness, hematuria, dysuria, urinary urgency, urinary frequency, headache, visual changes, or any other complaints. - Related Data Home Medications Medication Instructions Recorded Confirmed Acetaminophen Tab [Tylenol] 650 mg PO Q8H 01/31/19 01/31/19 Ibuprofen [Motrin Ib] 600 mg PO Q8H 01/31/19 01/31/19 Previous Rx's Medication Instructions Recorded Amoxicillin 500 mg PO Q12HR 10 Days #20 cap 01/31/19 Penicillin V Potassium [Pen Vee K] 500 mg PO QID #40 tablet 04/08/19 traMADol HCl [Ultram] 50 mg PO Q6H PRN #12 tab 04/08/19 Ibuprofen [Motrin] 600 mg PO Q8HR PRN #30 tab 11/17/19 Penicillin V Potassium [Pen Vee K] 500 mg PO Q6H #40 tablet 11/17/19 Allergies Allergy/AdvReac Type Severity Reaction Status Date / Time naproxen AdvReac Nausea & Verified 11/17/19 17:55 Vomiting Review of Systems ROS Statement: Those systems with pertinent positive or pertinent negative responses have been documented in the HPI. ROS Other: All systems not noted in ROS Statement are negative. Past Medical History Past Medical History: COPD, GERD/Reflux, Thyroid Disorder Additional Past Medical History / Comment(s): 06/19/15 Pt presented to [facility] ER with R side flank pain starting yesterday. She has fever today. She believed she had a UTI- she has urgency and frequency. She has also been nauseated. Other HX: enlarged thryoid, emphysema, herniated discs, DDD, scoliosis, chronic back pain, sleep disturbance-sleep paralysis. History of Any Multi-Drug Resistant Organisms: None Reported Past Surgical History: No Surgical Hx Reported Additional Past Surgical History / Comment(s): Leep excision of the ect/endocervix with colposcopy for high grade dysplasia of the cervix Past Anesthesia/Blood Transfusion Reactions: No Reported Reaction Past Psychological History: Anxiety Smoking Status: Current every day smoker Past Alcohol Use History: None Reported Past Drug Use History: Marijuana - Past Family History Father Family Medical History: CVA/TIA, Diabetes Mellitus, Hypertension, Myocardial Infarction ([place]) Mother Family Medical History: Diabetes Mellitus, Hypertension General Exam Limitations: no limitations General appearance: alert, in no apparent distress, other (This is a well- developed, well-nourished adult female patient in no acute distress. Vital signs upon presentation are temperature 98.7F, pulse 84, respirations 20, blood pressure 117/73, pulse ox 100% on room air) Eye exam: Present: normal appearance, PERRL, EOMI. Absent: scleral icterus, conjunctival injection, periorbital swelling ENT exam: Present: normal oropharynx, mucous membranes moist, other (There is poor dentition to the right upper dental region. There is fractured tooth #1. No surrounding gingival erythema or hyperplasia. No evidence for drainable abscess.) Neck exam: Present: normal inspection. Absent: tenderness, meningismus, lymphadenopathy Respiratory exam: Present: normal lung sounds bilaterally. Absent: respiratory distress, wheezes, rales, rhonchi, stridor Cardiovascular Exam: Present: regular rate, normal rhythm, normal heart sounds. Absent: systolic murmur, diastolic murmur, rubs, gallop, clicks Neurological exam: Present: alert, oriented X3, CN II-XII intact Psychiatric exam: Present: normal affect, normal mood Skin exam: Present: warm, dry, intact, normal color. Absent: rash Course Vital Signs 11/17/19 17:53 Temperature 98.7 F Pulse Rate 84 Respiratory 20 Rate Blood Pressure 117/73 O2 Sat by Pulse 100 Oximetry Procedures - Nerve Block Consent Obtained: verbal consent Local Anesthetic Used: Marcaine 0.5% Amount of anesthesia used: 3 Side: right Intraoral Nerve Block: superior alveolar Procedure Successful: Yes Complications: none Patient Tolerated Procedure: well Medical Decision Making - Medical Decision Making 34-year-old female patient presents to the emergency department today for evaluation of right upper dental pain. Patient states the pain started earlier this morning. Physical examination did reveal poor dentition with a broken tooth #1. No gingival erythema or hyperplasia. No evidence of drainable abscess. Patient has a known impacted wisdom tooth which she is on a waiting list for the oral surgeon. I did perform intraoral nerve block. Upon reevaluation patient has complete resolution of pain. She be discharged with a Tylenol codeine starter pack, ibuprofen prescription and pen VK. She is instructed to follow-up with the oral surgeon for further evaluation as soon as possible Return parameters were discussed in detail. She verbalizes understanding and agrees with this plan. Disposition Clinical Impression: Pain, dental Disposition: HOME SELF-CARE Condition: Good Instructions (If sedation given, give patient instructions): Toothache (ED) Additional Instructions: Follow-up with the dentist as soon as possible. Take medications as directed. Complete antibiotic prescription. Follow-up with your primary care physician for recheck in 1-2 days. Return to the emergency department immediately for any new, worsening, or concerning symptoms. Prescriptions: Ibuprofen [Motrin] 600 mg PO Q8HR PRN #30 tab PRN Reason: Pain Penicillin V Potassium [Pen Vee K] 500 mg PO Q6H #40 tablet Is patient prescribed a controlled substance at d/c from ED?: No Referrals: Gisel Kirkland MD [Primary Care Provider] - 1-2 days Time of Disposition: 18:46
== END 2019-11-17 18:55 | disposition home or self-care (01) ==
LOC: EC 17:52
DX: S02.5XXA Fracture of tooth (traumatic), initial encounter for closed fracture (principal); K01.1 Impacted teeth; X58.XXXA Exposure to other specified factors, initial encounter; F17.200 Nicotine dependence, unspecified, uncomplicated; Z88.6 Allergy status to analgesic agent
CPT/HCPCS: 64400; 99282

== ENCOUNTER 2020-09-24 15:23 | Inpatient (IN) | payer MEDICAID, OTHER ==
[2020-09-24] MEDS ORDERED: FAMOTIDINE 20 MG/2 ML VIAL IV STA (16:03)
--- NOTE | 2020-09-24 16:06 | ED ---
General Adult HPI - General Chief complaint: Recheck/Abnormal Lab/Rx Stated complaint: Swollowed Bleach Time Seen by Provider: 09/24/20 15:44 Source: patient, RN notes reviewed Mode of arrival: ambulatory Limitations: no limitations - History of Present Illness Initial comments: Patient is a pleasant 25-year-old female presenting to the emergency department after swallowing bleach. Patient states she had a glass with approximately 2 ounces of paraplegia and half water and swallowed it around an hour and a half ago. Patient admits that she was having a rough day and did swallow this intentionally. Patient denies taking anything else. Patient complains of mild discomfort in her epigastric region similar to previous mild heartburn. - Related Data Home Medications Medication Instructions Recorded Confirmed No Known Home Medications 09/24/20 09/24/20 Allergies Allergy/AdvReac Type Severity Reaction Status Date / Time naproxen AdvReac Nausea & Verified 09/24/20 17:10 Vomiting Review of Systems ROS Statement: Those systems with pertinent positive or pertinent negative responses have been documented in the HPI. ROS Other: All systems not noted in ROS Statement are negative. Constitutional: Denies: fever Eyes: Denies: eye pain ENT: Denies: ear pain Respiratory: Denies: cough Cardiovascular: Denies: chest pain Endocrine: Denies: fatigue Gastrointestinal: Reports: as per HPI Genitourinary: Denies: dysuria Musculoskeletal: Denies: back pain Skin: Denies: lesions Neurological: Denies: headache Psychiatric: Reports: depression Past Medical History Past Medical History: COPD, GERD/Reflux, Thyroid Disorder Additional Past Medical History / Comment(s): 06/19/15 Pt presented to [facility] ER with R side flank pain starting yesterday. She has fever today. She believed she had a UTI- she has urgency and frequency. She has also been nauseated. Other HX: enlarged thryoid, emphysema, herniated discs, DDD, scoliosis, chronic back pain, sleep disturbance-sleep paralysis. History of Any Multi-Drug Resistant Organisms: None Reported Past Surgical History: No Surgical Hx Reported Additional Past Surgical History / Comment(s): Leep excision of the ect/en docervix with colposcopy for high grade dysplasia of the cervix Past Anesthesia/Blood Transfusion Reactions: No Reported Reaction Past Psychological History: Anxiety Smoking Status: Former smoker Past Alcohol Use History: Occasional Past Drug Use History: Marijuana - Past Family History Father Family Medical History: CVA/TIA, Diabetes Mellitus, Hypertension, Myocardial Infarction ([place]) Mother Family Medical History: Diabetes Mellitus, Hypertension General Exam Limitations: no limitations General appearance: alert, in no apparent distress Head exam: Present: atraumatic Eye exam: Present: normal appearance ENT exam: Present: normal oropharynx Neck exam: Present: normal inspection Respiratory exam: Present: normal lung sounds bilaterally Cardiovascular Exam: Present: regular rate, normal rhythm GI/Abdominal exam: Present: soft, tenderness (Mild epigastric tenderness) Extremities exam: Present: normal inspection Neurological exam: Present: alert Psychiatric exam: Present: flat affect Skin exam: Present: normal color Course Vital Signs 09/24/20 15:28 Temperature 98 F Pulse Rate 110 H Respiratory 18 Rate Blood Pressure 137/99 O2 Sat by Pulse 99 Oximetry EKG Findings - EKG Comments: EKG Findings:: Sinus rhythm at 83. DE 108. QRS 74. QT 376. QTc 441. Right axis. Normal QRS. No acute ST change. Medical Decision Making - Medical Decision Making Patient seen by mental health services with plans for admission - Lab Data Result diagrams: 09/24/20 16:11 09/24/20 16:11 Lab Results 09/24/20 09/24/20 09/24/20 Range/Units 16:11 16:11 16:11 WBC 9.6 (3.8-10.6) k/uL RBC 4.30 (3.80-5.40) m/uL Hgb 13.6 (11.4-16.0) gm/dL Hct 40.0 (34.0-46.0) % MCV 92.9 (80.0-100.0) fL MCH 31.7 (25.0-35.0) pg MCHC 34.1 (31.0-37.0) g/dL RDW 12.2 (11.5-15.5) % Plt Count 282 (150-450) k/uL MPV 7.1 Neutrophils % 70 % Lymphocytes % 24 % Monocytes % 4 % Eosinophils % 1 % Basophils % 1 % Neutrophils # 6.7 (1.3-7.7) k/uL Lymphocytes # 2.3 (1.0-4.8) k/uL Monocytes # 0.4 (0-1.0) k/uL Eosinophils # 0.1 (0-0.7) k/uL Basophils # 0.1 (0-0.2) k/uL Sodium (137-145) mmol/L Potassium (3.5-5.1) mmol/L Chloride (98-107) mmol/L Carbon Dioxide (22-30) mmol/L Anion Gap mmol/L BUN (7-17) mg/dL Creatinine (0.52-1.04) mg/dL Est GFR (CKD-EPI)AfAm (>60 ml/min/1.73 sqM) Est GFR (CKD-EPI)NonAf (>60 ml/min/1.73 sqM) Glucose (74-99) mg/dL Calcium (8.4-10.2) mg/dL Total Bilirubin (0.2-1.3) mg/dL AST (14-36) U/L ALT (4-34) U/L Alkaline Phosphatase (38-126) U/L Total Protein (6.3-8.2) g/dL Albumin (3.5-5.0) g/dL Urine HCG, Qual Not Detected (Not Detectd) Salicylates mg/dL Urine Opiates Screen Not Detected (NotDetected) Ur Oxycodone Screen Not Detected (NotDetected) Urine Methadone Screen Not Detected (NotDetected) Ur Propoxyphene Screen Not Detected (NotDetected) Acetaminophen ug/mL Ur Barbiturates Screen Not Detected (NotDetected) U Tricyclic Antidepress Not Detected (NotDetected) Ur Phencyclidine Scrn Not Detected (NotDetected) Ur Amphetamines Screen Detected H (NotDetected) U Methamphetamines Scrn Detected H (NotDetected) U Benzodiazepines Scrn Not Detected (NotDetected) Urine Cocaine Screen Not Detected (NotDetected) U Marijuana (THC) Screen Detected H (NotDetected) Serum Alcohol mg/dL 09/24/20 Range/Units 16:11 WBC (3.8-10.6) k/uL RBC (3.80-5.40) m/uL Hgb (11.4-16.0) gm/dL Hct (34.0-46.0) % MCV (80.0-100.0) fL MCH (25.0-35.0) pg MCHC (31.0-37.0) g/dL RDW (11.5-15.5) % Plt Count (150-450) k/uL MPV Neutrophils % % Lymphocytes % % Monocytes % % Eosinophils % % Basophils % % Neutrophils # (1.3-7.7) k/uL Lymphocytes # (1.0-4.8) k/uL Monocytes # (0-1.0) k/uL Eosinophils # (0-0.7) k/uL Basophils # (0-0.2) k/uL Sodium 135 L (137-145) mmol/L Potassium 3.9 (3.5-5.1) mmol/L Chloride 100 (98-107) mmol/L Carbon Dioxide 26 (22-30) mmol/L Anion Gap 9 mmol/L BUN 12 (7-17) mg/dL Creatinine 0.70 (0.52-1.04) mg/dL Est GFR (CKD-EPI)AfAm >90 (>60 ml/min/1.73 sqM) Est GFR (CKD-EPI)NonAf >90 (>60 ml/min/1.73 sqM) Glucose 107 H (74-99) mg/dL Calcium 9.5 (8.4-10.2) mg/dL Total Bilirubin 0.7 (0.2-1.3) mg/dL AST 28 (14-36) U/L ALT 15 (4-34) U/L Alkaline Phosphatase 49 (38-126) U/L Total Protein 7.8 (6.3-8.2) g/dL Albumin 4.6 (3.5-5.0) g/dL Urine HCG, Qual (Not Detectd) Salicylates <1.0 mg/dL Urine Opiates Screen (NotDetected) Ur Oxycodone Screen (NotDetected) Urine Methadone Screen (NotDetected) Ur Propoxyphene Screen (NotDetected) Acetaminophen <10.0 ug/mL Ur Barbiturates Screen (NotDetected) U Tricyclic Antidepress (NotDetected) Ur Phencyclidine Scrn (NotDetected) Ur Amphetamines Screen (NotDetected) U Methamphetamines Scrn (NotDetected) U Benzodiazepines Scrn (NotDetected) Urine Cocaine Screen (NotDetected) U Marijuana (THC) Screen (NotDetected) Serum Alcohol <10 mg/dL - Radiology Data Radiology results: image reviewed (Abdominal x-ray shows no acute process. 1 view chest x-ray shows no acute process.) Disposition Clinical Impression: Depression, Suicide attempt Disposition: TRANSFER TO PSYCH HOSP/UNIT Is patient prescribed a controlled substance at d/c from ED?: No Referrals: None,Stated [Primary Care Provider] - 1-2 days Decision Time: 18:58
[2020-09-24 16:25] LABS: Basophils # (A) 0.1 k/uL (0-0.2); Basophils % (A) 1 %; Eosinophils # (A) 0.1 k/uL (0-0.7); Eosinophils % (A) 1 %; HGB 13.6 gm/dL (11.4-16.0); Lymphocytes # (A) 2.3 k/uL (1.0-4.8); Lymphocytes % (A) 24 %; MCH 31.7 pg (25.0-35.0); MCHC 34.1 g/dL (31.0-37.0); MCV 92.9 fL (80.0-100.0); Mean Platelet Volume 7.1; Monocytes # (A) 0.4 k/uL (0-1.0); Monocytes % (A) 4 %; Neutrophils # (A) 6.7 k/uL (1.3-7.7); Neutrophils % (A) 70 %; Platelet Count 282 k/uL (150-450); RDW 12.2 % (11.5-15.5); WBC 9.6 k/uL (3.8-10.6)
[2020-09-24 16:37] LABS: ALT 15 U/L (4-34); AST 28 U/L (14-36); Acetaminophen <10.0 ug/mL; African American GFR (CKD) >90 (>60 ml/min/1.73 sqM); Albumin 4.6 g/dL (3.5-5.0); Alcohol <10 mg/dL; Alkaline Phosphatase 49 U/L (38-126); Anion Gap 9 mmol/L; Blood Urea Nitrogen 12 mg/dL (7-17); Calcium 9.5 mg/dL (8.4-10.2); Carbon Dioxide 26 mmol/L (22-30); Chloride 100 mmol/L (98-107); Glucose 107 mg/dL (74-99); Non-African American GFR(CKD) >90 (>60 ml/min/1.73 sqM); Potassium 3.9 mmol/L (3.5-5.1); Salicylate <1.0 mg/dL; Sodium 135 mmol/L (137-145); Total Bilirubin 0.7 mg/dL (0.2-1.3); Total Protein 7.8 g/dL (6.3-8.2)
--- NOTE | 2020-09-24 17:00 | XR ---
EXAMINATION TYPE: XR abdomen 1V DATE OF EXAM: 09/24/2020 COMPARISON: NONE HISTORY: Flank pain and fever TECHNIQUE: 2 views upright FINDINGS: There is no sign of intestinal obstruction or pneumoperitoneum. Fecal pattern is normal. Lillian ng bases are clear. There are no pathologic calcifications over the kidneys. There is no evidence of a mass. IMPRESSION: Nonacute abdomen.
--- NOTE | 2020-09-24 17:02 | XR ---
EXAMINATION TYPE: XR chest 1V portable DATE OF EXAM: 09/24/2020 COMPARISON: August 03, 2018 HISTORY: Fever. Lesion congestion. TECHNIQUE: FINDINGS: Heart and mediastinum are normal. Lungs are clear. Diaphragm is normal. Bony thorax appears normal. IMPRESSION: Normal chest. There is clearing of the lower lobe bilateral pneumonia compared to old exa m.
[2020-09-24 18:43] LABS: Amphetamine Screen,Urine Detected (NotDetected); Barbiturate Screen,Urine Not Detected (NotDetected); Benzodiazepines Screen,Urine Not Detected (NotDetected); Cocaine Screen,Urine Not Detected (NotDetected); Methadone Screen, Urine Not Detected (NotDetected); Opiate Screen,Urine Not Detected (NotDetected); Oxycodone Screen, Urine Not Detected (NotDetected); Phencyclidine Screen,Urine Not Detected (NotDetected); Tricyclic Antidepressant,Urine Not Detected (NotDetected); Urn Cannabinoid Scrn Detected (NotDetected)
[2020-09-24] MEDS ORDERED: LORazepam 1 MG TAB PO PRN (20:06)
[2020-09-24] MEDS ORDERED: MAG HYDROX/AL HYDROX/SIMETH 30 ML CUP PO PRN (20:06)
[2020-09-24] MEDS ORDERED: ACETAMINOPHEN TAB 325 MG TAB PO PRN (20:06)
[2020-09-24] MEDS ORDERED: MAGNESIUM HYDROXIDE 2,400 MG/10 ML CUP PO PRN (20:06)
[2020-09-24] MEDS ORDERED: HALOPERIDOL LACTATE 5 MG/ML 1 ML VIAL IM PRN (20:08)
[2020-09-24] MEDS ORDERED: LORazepam 2 MG/ML INJ IM PRN (20:08)
[2020-09-24] MEDS ORDERED: diphenhydrAMINE 50 MG/ML 1 ML VIAL IM PRN (20:09)
[2020-09-24] MEDS: NICOTINE 14MG/24HR PATCH TRANSDERM SCH (20:32)
[2020-09-25] MEDS ORDERED: OLANZapine 10 MG VIAL IM PRN (09:01)
[2020-09-25] MEDS: OLANZapine 5 MG TAB PO SCH (10:31)
[2020-09-25] MEDS: NICOTINE 14MG/24HR PATCH TRANSDERM SCH (10:32)
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
[2020-09-25 21:45] LABS: Hemoglobin A1C 5.4 % (4.0-6.0)
--- NOTE | 2020-09-26 02:53 | P.CONS ---
History of Present Illness - Reason for Consult Consult date: 09/26/20 - History of Present Illness Patient was seen and evaluated with the early intervention school psychologist present. I was never alone with the patient. Patient is a 35-year-old female with a PMH of depression who had presented to the emergency room after she intentionally swallowed 2 ounces of bleach. The patient was admitted to the mental health unit for depression and suicidal ideation where she was seen and evaluated at the bedside earlier today. Patient reports feeling better since her admission. She denied any active complaints. Denied chest pain, shortness of fever, chills, cough, nausea, vomiting, abdominal pain, or diarrhea. The patient also denied any substance use despite her positive urine toxicology in the emergency room. She reports that she quit smoking a month ago and was previously smoking 6-7 cigarettes daily for most of her life. Review of Systems Pertinent positives and negatives as discussed in HPI, a complete review of systems was performed and all other systems are negative. Past Medical History Past Medical History: COPD, GERD/Reflux, Thyroid Disorder Additional Past Medical History / Comment(s): 06/19/15 Pt presented to [facility] ER with R side flank pain starting yesterday. She has fever today. She believed she had a UTI- she has urgency and frequency. She has also been nauseated. Other HX: enlarged thryoid, emphysema, herniated discs, DDD, scoliosis, chronic back pain, sleep disturbance-sleep paralysis. History of Any Multi-Drug Resistant Organisms: None Reported Past Surgical History: No Surgical Hx Reported Additional Past Surgical History / Comment(s): Leep excision of the ect/endocervix with colposcopy for high grade dysplasia of the cervix Past Anesthesia/Blood Transfusion Reactions: No Reported Reaction Past Psychological History: Anxiety Additional Psychological History / Comment(s): Pt lives alone. She is independent. She uses no assistive device or home care. She drives. Smoking Status: Former smoker Past Alcohol Use History: Occasional Additional Past Alcohol Use History / Comment(s): Pt states she smokes less than a ppd. She started smoking in 1988. Past Drug Use History: Marijuana - Past Family History Father Family Medical History: CVA/TIA, Diabetes Mellitus, Hypertension, Myocardial Infarction ([place]) Mother Family Medical History: Diabetes Mellitus, Hypertension Medications and Allergies Home Medications Medication Instructions Recorded Confirmed Type No Known Home Medications 09/24/20 09/24/20 History Allergies Allergy/AdvReac Type Severity Reaction Status Date / Time naproxen AdvReac Nausea & Verified 09/24/20 20:47 Vomiting nicotine [From Habitrol] AdvReac Rash/Hives Verified 09/24/20 20:47 Physical Exam Vitals: Vital Signs Temp Pulse Resp BP Pulse Ox 09/25/20 06:16 97.9 F 95 16 109/59 95 General: non toxic, no distress, appears at stated age, normal weight Derm: no unusual rashes/lesions no unusual ecchymoses, warm, dry Head: atraumatic, normocephalic, symmetric Eyes: EOMI, no lid lag, anicteric sclera, pupils equal round reactive to light ENT: Nose and ears atraumatic, no thrush, no pharyngeal erythema Neck: No thyromegaly, no cervical lymphadenopathy, trachea midline, supple Mouth: no lip lesion, mucus membranes moist Cardiovascular: S1S2 reg, no murmur, positive posterior tibial pulse bilateral, no edema, capillary refill less than 2 seconds Lungs: CTA bilateral, no rhonchi, no rales , no accessory muscle use Abdominal: soft, nontender to palpation, no guarding, no appreciable organomegaly, normal bowel sounds Ext: no gross muscle atrophy, muscle strength 5 out of 5 in all 4 extremities grossly, no contractures, Neuro: CN II-XI grossly intact, light touch intact all 4 extremities, finger to nose within normal limits, Psych: Alert, oriented, appropriate affect Results CBC & Chem 7: 09/24/20 16:11 09/24/20 16:11 Labs: Abnormal Lab Results - Last 24 Hours (Table) 09/25/20 Range/Units 12:36 Cholesterol 261 H (<200) mg/dL LDL Cholesterol, Calc 136 H (0-99) mg/dL HDL Cholesterol 106 H (40-60) mg/dL Assessment and Plan Plan: Tobacco and substance abuse -Advised on the importance of cessation Depression and suicidal ideation -As per psychiatry Thank you for allowing us to participate in the care of this patient. We will follow peripherally. Do not hesitate to contact us with questions. Someone can be reached from the [facility] hospitalist group at all hours of the day at [phone].
[2020-09-26] MEDS: OLANZapine 5 MG TAB PO SCH (08:43)
[2020-09-26] MEDS: NICOTINE 14MG/24HR PATCH TRANSDERM SCH (08:50)
--- NOTE | 2020-09-26 11:38 | P.PN ---
Progress Note - Text Progress Note Date: 09/26/20 Clinical Problems: Suicide attempt, unspecified mood disorder, stereotypic movement disorder, rule out substance-induced mood disorder, rule out major depressive disorder, rule out bipolar disorder most recent episode mixed, rule out methamphetamine use disorder, rule out cannabis use disorder Interim history: I reviewed the medical record, interviewed the patient and discussed her treatment and treatment plan during team meeting. She complained of continued feelings depression because she is no longer allowed to see her children. She perseverated about lost her children. In the meantime, she rocked back and forth in the chair in a stereotypic manner. When I asked about the rocking she stated that she has had this behavior since she was a child and was diagnosed with a repetitive movement disorder. I told her that it's unusual for the courts to remove children from their parent without just cause and following due process. She gave a circumstantial description of the events that was difficult to follow or understand because she spoke in a very rapid manner to where her speech was slurred. She talked about missing visitation, missing court dates and rambled about counseling and group. I asked several questions to try to clarify her responses failed to gain a better understanding. She refuses to identify a family member with whom we could speak to get back on information. She alleged that she is alienated from her entire family and does not wish us to have contact with them. She denied side effects initial dose of olanzapine. She believes she feels "less depressed" with the 5 mg dose. She denied that she is experiencing suicidal thoughts. Mental status exam: She presented as a thin casually groomed 35-year-old female who appeared younger than his stated age. She made intermittent eye contact. She rocked aggressively in her chair. She had a blunted but bright facial expression. Her speech was spontaneous with increased rate and rhythm. At times was dysarthric and difficult to understand. Her affect was dysphoric and appeared almost elevated except when she was talking about her children. She did not express suicidal ideation or wishes. She only express depressive cognitions when talking about the children. She was guarded and ruminated about the loss of parental rights but did not express ideas reference, paranoid ideation, magical ideation or clear delusional thoughts. Her thinking was concrete, circumstantial and perseverative. She denied hallucinations and did not appear to be responding to internal stimuli. Assessment: She complains of intermittent depression related to thoughts about her loss of her premenstrual rights that her presentation and her speech suggest a mixed mood episode. She continued this display stereotypic movement disorders that are repetitive. She will not consent to a family contact. Plan: Continue inpatient treatment. Safety precautions. Increase olanzapine to 10 mg daily and titrated clinical response and tolerance. Continue discuss the benefit of obtaining collateral information. Encourage participation in therapeutic groups and activities. Evaluate clinical status response to treatment daily basis.
[2020-09-27] MEDS: NICOTINE 14MG/24HR PATCH TRANSDERM SCH (08:44)
[2020-09-27] MEDS: OLANZapine 10 MG TAB PO SCH (08:44)
--- NOTE | 2020-09-27 10:36 | P.PN ---
Progress Note - Text Progress Note Date: 09/27/20 Clinical Problems: Suicide attempt, unspecified mood disorder, stereotypic movement disorder, rule out substance-induced mood disorder, rule out major depressive disorder, rule out bipolar disorder most recent episode mixed, probable opiate use disorder, rule out methamphetamine use disorder, rule out cannabis use disorder Interim history: I reviewed the medical record, interviewed the patient and discussed her treatment and treatment plan during team meeting. She intends to complained that she is distressed that her appeal to regain custody of her children was denied. I again asked several questions to clarify how the CPS case progressed to removal of parental rights. She was again vague, circumstantial and digressive. She maintained that she was not adequately represented and the courts were prejudice against her. She spontaneously began talking about her struggles with opiates. She alleged that she had initially been prescribed opiates for the treatment of pain and "could" obtaining additional prescriptions "if I wanted." She alleged that opiates were the only medications that "gave me energy" and "stop my rocking." She alleged that she stopped using opiates on her own. She complained that the CPS worker recommended she attend Narcotics Anonymous. She declined because at that time she was not using opiates. This would suggest that [facility] was concerned about her substance use problems. During this discussion she requested prescriptions for Suboxone. She emphasized that the Suboxone would give her energy, motivation and calm her repetitive movements. Mental status exam: She presented as a thin casually groomed 35-year-old female who appeared younger than his stated age. She made intermittent eye contact. She rocked aggressively in her chair. She had a bright facial expression. Her speech was spontaneous with normal rate and rhythm. At times her speech was dysarthric and difficult to understand. Her affect blunted but stable and appropriate. She did not express suicidal ideation or wishes. She only express depressive cognitions when talking about the children. She was guarded and ruminated about the loss of parental rights but did not express ideas reference, paranoid ideation, magical ideation or clear delusional thoughts. Her thinking was concrete, circumstantial and perseverative. She denied hallucinations and did not appear to be responding to internal stimuli. Assessment: I suspect that substance use and substance use problems are more of an issue than she presents. She continued this display stereotypic movement disorders that are repetitive. She will not consent to a family contact. Plan: Continue inpatient treatment. Safety precautions. Continue olanzapine to 10 mg daily and titrated clinical response and tolerance. Continue discuss the benefit of obtaining collateral information. Encourage participation in therapeutic groups and activities. Evaluate clinical status response to treatment daily basis.
[2020-09-28] MEDS: OLANZapine 10 MG TAB PO SCH (08:36)
[2020-09-28] MEDS: NICOTINE 14MG/24HR PATCH TRANSDERM SCH (08:36)
--- NOTE | 2020-09-28 12:33 | P.PN ---
Progress Note - Text Progress Note Date: 09/28/20 Clinical Problems: Suicide attempt, unspecified mood disorder, substance- induced mood disorder, opiate use disorder, methamphetamine use disorder, cannabis use disorder Interim history: I reviewed the medical record, interviewed the patient and discussed her treatment and treatment plan during team meeting. She denied feeling depressed, anxious or having thoughts of or suicide. She alleged that the medication is "working.". She denied side effects to the increased dose of olanzapine. She requested to be discharged. She is concerned about 2 cats that she left in her trailer unsupervised. I explained that we will need to schedule a follow-up appointment and we can discharge her after receive establish her aftercare. I spoke to the manager social who is pursuing an appointment with her primary counseling Center. Mental status exam: She presented as a thin casually groomed 35-year-old female who appeared younger than his stated age. She made intermittent eye contact. She walked less aggressively in the chair. She had a bright facial expression. Her speech was spontaneous with normal rate and rhythm. At times her speech was spontaneous with normal rate, rhythm and volume. Her affect blunted but stable and appropriate. She did not express suicidal ideation or wishes. She did not ruminate about the loss of parental rights and did not express ideas reference, paranoid ideation, magical ideation or clear delusional thoughts. Her thinking was concrete, circumstantial and perseverative. She denied hallucinations and did not appear to be responding to internal stimuli. Assessment: I suspect that this presentation was related to her use of methamphetamine and opiates. She continued this display stereotypic movement disorders that are repetitive. Plan: Discharge home once we obtain a follow-up appointment. Safety precautions. Continue olanzapine to 10 mg daily and titrated clinical response and tolerance. Continue discuss the benefit of obtaining collateral information. Encourage participation in therapeutic groups and activities. Evaluate clinical status response to treatment daily basis.
[2020-09-28 14:08] LABS: Appearance,Urine Clear (Clear); Bacteria,Urine Rare /hpf; Bilirubin,Urine Negative (Negative); Blood,Urine Small (Negative); Color,Urine Yellow; Glucose,Urine (UA) Negative (Negative); Ketones,Urine Negative (Negative); Leukocyte Esterase,Urine Small (Negative); Mucus,Urine Rare /hpf; Nitrite,Urine Negative (Negative); PH, Urine 5.5 (5.0-8.0); Protein,Urine Negative (Negative); Specific Gravity,Urine 1.023 (1.001-1.035); Squamous Epithelial Cell,Urine 5 /hpf (0-4); Urobilinogen,Urine <2.0 mg/dL (<2.0); WBC,Urine 1 /hpf (0-5)
[2020-09-29] MEDS: NICOTINE 14MG/24HR PATCH TRANSDERM SCH (08:06)
[2020-09-29] MEDS: OLANZapine 10 MG TAB PO SCH (08:06)
--- NOTE | 2020-09-29 11:29 | P.PN ---
Progress Note - Text Progress Note Date: 09/29/20 Clinical Problems: Unspecified mood disorder, stereotypic movement disorder, substance-induced mood disorder, opiate use disorder, methamphetamine use disorder, cannabis use disorder Interim history: I reviewed the medical record and interviewed the patient. She denied feeling depressed, anxious or having thoughts of or suicide. She is keen on discharge is he is concerned about 2 cats that she left the trailer unsupervised. bridge gang worker was able to identify her clinic but was not able to schedule a follow-up appointment. Mental status exam: She was casually groomed, pleasant and cooperative. She made eye contact and attempts to interview. The stereotypic movements have decr eased in intensity. Her affect was blunted but bright and expressive. She denied suicidal ideation, wishes homicidal ideation. She denied feeling hopeless, helpless or worthless. She did not express ideas reference or paranoid ideation. Her thinking was concrete but his associations were coherent, logical and goal directed. She did not appear to be responding to internal stimuli. Assessment: I suspect that her presentation was related to her use of substances including methamphetamine and opiates. Overall, she has been mentally ill much improvement admission. We can discharge her once we finalize her discharge plan. Plan: Plan for discharge on 10/01/2020. Continue suicide precautions. Continue olanzapine 10 mg daily. Encourage participation in therapeutic groups and acti vities. Evaluate clinical status response to treatment daily basis.
[2020-09-30] MEDS: NICOTINE 14MG/24HR PATCH TRANSDERM SCH (07:59)
[2020-09-30] MEDS: OLANZapine 10 MG TAB PO SCH (07:59)
--- NOTE | 2020-09-30 14:11 | P.PN ---
Progress Note - Text Progress Note Date: 09/30/20 Clinical Problems: Unspecified mood disorder, stereotypic movement disorder, substance-induced mood disorder, opiate use disorder, methamphetamine use disorder, cannabis use disorder Interim history: I reviewed the medical record and interviewed the patient. She denied feeling depressed, anxious or having thoughts of or suicide. Her only concern was discharge. Mental status exam: She was casually groomed, pleasant and cooperative. She made eye contact and attempts to interview. The stereotypic movements have decreased in intensity. Her affect was blunted but bright and expressive. She denied suicidal ideation, wishes homicidal ideation. She denied feeling hopeless, helpless or worthless. She did not express ideas reference or paranoid ideation. Her thinking was concrete but his associations were coherent, logical and goal directed. She did not appear to be responding to internal stimuli. Assessment: I suspect that her presentation was related to her use of substances including methamphetamine and opiates. Overall, she has been mentally ill much improvement admission. Plan: Plan for discharge on 10/01/2020. Continue suicide precautions. Continue olanzapine 10 mg daily. Encourage participation in therapeutic groups and activities. Evaluate clinical status response to treatment daily basis.
[2020-10-01] MEDS: OLANZapine 10 MG TAB PO SCH (07:57)
[2020-10-01] MEDS: NICOTINE 14MG/24HR PATCH TRANSDERM SCH (07:57)
[2020-10-01 10:38] VITALS: BP 111/78; PULSE 103; RESP 20; TEMP 98.5
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
== END 2020-10-01 12:11 | disposition home or self-care (01) | DRG 897 ==
LOC: EC 15:23 → 3MHU 19:37
PROVIDERS: ADMIT Psychiatry & Neurology Psychiatry; ATTEND Psychiatry & Neurology Psychiatry
DX: F19.94 Other psychoactive substance use, unspecified with psychoactive substance-induced mood disorder (principal); F15.10 Other stimulant abuse, uncomplicated; F11.10 Opioid abuse, uncomplicated; F12.10 Cannabis abuse, uncomplicated; F32.9 Major depressive disorder, single episode, unspecified; G47.53 Recurrent isolated sleep paralysis; F41.9 Anxiety disorder, unspecified; F98.4 Stereotyped movement disorders; J43.9 Emphysema, unspecified; M41.9 Scoliosis, unspecified; T54.92XA Toxic effect of unspecified corrosive substance, intentional self-harm, initial encounter; Z56.0 Unemployment, unspecified; Z82.49 Family history of ischemic heart disease and other diseases of the circulatory system; Z83.3 Family history of diabetes mellitus; Z71.6 Tobacco abuse counseling; F17.210 Nicotine dependence, cigarettes, uncomplicated; Z71.51 Drug abuse counseling and surveillance of drug abuser; R45.1 Restlessness and agitation; Z88.6 Allergy status to analgesic agent; Z88.8 Allergy status to other drugs, medicaments and biological substances; Z20.828 Contact with and (suspected) exposure to other viral communicable diseases; G89.29 Other chronic pain; Z60.2 Problems related to living alone; Z63.79 Other stressful life events affecting family and household; Z91.411 Personal history of adult psychological abuse
CPT/HCPCS: 36415; 71045; 74018; 80053; 80061; 80306; 80320; 80329; 81001; 81025; 83036; 83520; 84443; 85025; 87635; 93005; 96374; 99285

== ENCOUNTER 2021-06-06 19:42 | Emergency (ER) | payer OTHER ==
[2021-06-06 19:49] VITALS: BP 132/90; PULSE 125; RESP 20; TEMP 99.3
[2021-06-06] MEDS ORDERED: LIDOCAINE 1% INJ 10MG/ML (20 ML MDV) SQ ONE (20:03)
--- NOTE | 2021-06-06 20:30 | ED ---
Wound/Laceration HPI - General Chief Complaint: Wound/Laceration Stated Complaint: L Arm laceration Source: patient, RN notes reviewed Mode of arrival: ambulatory - History of Present Illness Initial Comments: 35-year-old white female Patient, alert and oriented 4 presents to the emergency room with complaints of dropping a ceramic vase on her left forearm yesterday causing a laceration. She states she washed it and put a bandage over it right away and now the bandage has dried into the wound and she cannot remove it. She states that she tried to soak it off and it caused the bleeding to recur. Patient has a 5 cm linear laceration to left forearm, denies any other injuries. States did not come last night because she didn't realize how bad it was. Patient states her tetanus shot is up-to-date. -: days(s) (1) Extremity Location: Left: Forearm Place: home Patient Tetanus UTD: Yes Context: accidental Associated Symptoms: none - Related Data Previous Rx's Medication Instructions Recorded Nicotine 14Mg/24Hr Patch [Habitrol] 1 patch TRANSDERM DAILY patch 10/01/20 OLANZapine [ZyPREXA] 10 mg PO DAILY #30 tab 10/01/20 Cephalexin [Keflex] 500 mg PO Q6HR 7 Days #28 cap 06/06/21 Allergies Allergy/AdvReac Type Severity Reaction Status Date / Time naproxen AdvReac Nausea & Verified 06/06/21 19:49 Vomiting nicotine [From Habitrol] AdvReac Rash/Hives Verified 06/06/21 19:49 Review of Systems ROS Statement: Those systems with pertinent positive or pertinent negative responses have been documented in the HPI. ROS Other: All systems not noted in ROS Statement are negative. Past Medical History Past Medical History: COPD, GERD/Reflux, Thyroid Disorder Additional Past Medical History / Comment(s): 06/19/15 Pt presented to [facility] ER with R side flank pain starting yesterday. She has fever today. She believed she had a UTI- she has urgency and frequency. She has also been nauseated. Other HX: enlarged thryoid, emphysema, herniated discs, DDD, scoliosis, chronic back pain, sleep disturbance-sleep paralysis. History of Any Multi-Drug Resistant Organisms: None Reported Past Surgical History: No Surgical Hx Reported Additional Past Surgical History / Comment(s): Leep excision of the ect/endocervix with colposcopy for high grade dysplasia of the cervix Past Anesthesia/Blood Transfusion Reactions: No Reported Reaction Past Psychological History: Anxiety Smoking Status: Former smoker Past Alcohol Use History: Occasional Past Drug Use History: Marijuana - Past Family History Father Family Medical History: CVA/TIA, Diabetes Mellitus, Hypertension, Myocardial Infarction ([place]) Mother Family Medical History: Diabetes Mellitus, Hypertension General Exam General appearance: alert, in no apparent distress Head exam: Present: atraumatic, normocephalic, normal inspection Eye exam: Present: normal appearance, PERRL, EOMI. Absent: scleral icterus, conjunctival injection, periorbital swelling ENT exam: Present: normal exam, normal oropharynx, mucous membranes moist Neck exam: Present: normal inspection, full ROM. Absent: tenderness, meningismus, lymphadenopathy Respiratory exam: Present: normal lung sounds bilaterally. Absent: respiratory distress, wheezes, rales, rhonchi, stridor Cardiovascular Exam: Present: normal rhythm, tachycardia, normal heart sounds. Absent: systolic murmur, diastolic murmur, rubs, gallop, clicks GI/Abdominal exam: Present: soft, normal bowel sounds. Absent: distended, tenderness, guarding, rebound, rigid Left Forearm Wrist exam: Present: full ROM, tenderness, laceration (5 cm laceration ). Absent: deformity, dislocation, erythema Neuro motor exam: Present: wrist extension intact, thumb opposition intact, thumb IP flexion intact, thumb adduction intact Vascular: Present: normal capillary refill, radial pulse. Absent: vascular compromise Back exam: Present: full ROM. Absent: tenderness, CVA tenderness (R), CVA tenderness (L), muscle spasm, paraspinal tenderness, vertebral tenderness Neurological exam: Present: alert, oriented X3, CN II-XII intact Psychiatric exam: Present: normal affect, normal mood, anxious (States afraid of doctors and needles, needs to listen to her headphones and seemed out loud to distract herself from the noises in the hospital) Skin exam: Present: warm, dry, intact, normal color. Absent: rash Course Vital Signs 06/06/21 19:45 Temperature 99.3 F Pulse Rate 125 H Respiratory 20 Rate Blood Pressure 132/90 O2 Sat by Pulse 98 Oximetry Procedures - Laceration Laceration #1 Site: upper extremity (Left forearm) Description: linear Depth: simple, single layer Anesthetic Used: lidocaine 1% Anesthesia Technique: local infiltration Pre-repair: irrigated extensively (500cc ) Type of Sutures: nylon Size of Sutures: 4-0 Number of Sutures: 8 Technique: simple, interrupted (saline) Patient Tolerated Procedure: well, no complications Medical Decision Making - Medical Decision Making Patient is very anxious states that she's very frayed coming to the hospital on telemetry afraid of needles. She is listening to music headphones and singing out loud during laceration repair to help with her anxiety. 5 cm superficial laceration of the left forearm was closed with 8 sutures. Her tetanus shot is up-to-date. She will be placed on antibiotics due to delay in wound treatment and directed to return if any signs and symptoms of infection including fever, redness or drainage. Case discussed with Dr. Cruz Disposition Clinical Impression: Laceration Disposition: HOME SELF-CARE Condition: Good Instructions (If sedation given, give patient instructions): Care For Your Stit ches (DC), Laceration (ED) Additional Instructions: Take antibiotics as prescribed and follow-up with your doctor for suture removal in 7-10 days. Return if any worsening symptoms including redness, drainage or fever. Prescriptions: Cephalexin [Keflex] 500 mg PO Q6HR 7 Days #28 cap Is patient prescribed a controlled substance at d/c from ED?: No Referrals: None,Stated [Primary Care Provider] - 1-2 days Time of Disposition: 20:36
== END 2021-06-06 20:43 | disposition home or self-care (01) ==
LOC: EC 19:42
DX: S51.812A Laceration without foreign body of left forearm, initial encounter (principal); J44.9 Chronic obstructive pulmonary disease, unspecified; K21.9 Gastro-esophageal reflux disease without esophagitis; F41.9 Anxiety disorder, unspecified; F12.90 Cannabis use, unspecified, uncomplicated; Z87.891 Personal history of nicotine dependence; Z88.1 Allergy status to other antibiotic agents; W26.8XXA Contact with other sharp object(s), not elsewhere classified, initial encounter
CPT/HCPCS: 99282; 12002; J2001

== ENCOUNTER 2021-08-14 02:20 | Emergency (ER) | payer OTHER ==
[2021-08-14 02:36] VITALS: BP 156/95; PULSE 121; RESP 20; TEMP 100
[2021-08-14] MEDS ORDERED: AMOXIC-POT CLAV 875MG STARTER PACK 2 TAB BTL PO STA (02:59)
--- NOTE | 2021-08-14 03:03 | ED ---
Animal Bite HPI - General Chief Complaint: Animal Bite Stated Complaint: dog bite Time Seen by Provider: 08/14/21 02:40 Source: patient, RN notes reviewed Mode of arrival: ambulatory Limitations: no limitations - History of Present Illness Initial Comments: Patient is a 36-year-old female presenting to the emergency Department with complaints of a dog bite wounds. She states this happened about 4-5 hours ago, she did file a police report. This was her roommate's dog. She was in an argument with her roommate and the dog was protecting it's architectural draftsman, and started attacking her. She was bit on the right hand, right thigh and left side. She is up-to-date with her tetanus vaccine. She does think the dog's vaccines are up-to-date but is not 100% sure. She was checked out by EMS and they did sign off on her. Patient states she is a very anxious person was afraid to come in to the ER. She denies any fevers or chills, no chest pain or short of breath. She has no further complaints. - Related Data Previous Rx's Medication Instructions Recorded Nicotine 14Mg/24Hr Patch [Habitrol] 1 patch TRANSDERM DAILY patch 10/01/20 OLANZapine [ZyPREXA] 10 mg PO DAILY #30 tab 10/01/20 Cephalexin [Keflex] 500 mg PO Q6HR 7 Days #28 cap 06/06/21 Amoxicillin/Potassium Clav 1 tab PO BID 7 Days #14 tab 08/14/21 [Augmentin 875-125 Tablet] Allergies Allergy/AdvReac Type Severity Reaction Status Date / Time naproxen AdvReac Nausea & Verified 08/14/21 02:36 Vomiting nicotine [From Habitrol] AdvReac Rash/Hives Verified 08/14/21 02:36 Review of Systems ROS Statement: Those systems with pertinent positive or pertinent negative responses have been documented in the HPI. ROS Other: All systems not noted in ROS Statement are negative. Past Medical History Past Medical History: COPD, GERD/Reflux, Thyroid Disorder Additional Past Medical History / Comment(s): 06/19/[address] [facility] ER with R side flank pain starting yesterday. She has fever today. She believed she had a UTI- she has urgency and frequency. She has also been nauseated. Other HX: enlarged thryoid, emphysema, herniated discs, DDD, scoliosis, chronic back pain, sleep disturbance-sleep paralysis. History of Any Multi-Drug Resistant Organisms: None Reported Past Surgical History: No Surgical Hx Reported Additional Past Surgical History / Comment(s): Leep excision of the ect/endocervix with colposcopy for high grade dysplasia of the cervix Past Anesthesia/Blood Transfusion Reactions: No Reported Reaction Past Psychological History: Anxiety Smoking Status: Current every day smoker Past Alcohol Use History: Occasional Past Drug Use History: Marijuana - Past Family History Father Family Medical History: CVA/TIA, Diabetes Mellitus, Hypertension, Myocardial Infarction ([place]) Mother Family Medical History: Diabetes Mellitus, Hypertension General Exam - General Exam Comments Initial Comments: GENERAL: Patient is well-developed and well-nourished. Patient is nontoxic and in no acute distress, however she is very anxious. HEAD: Atraumatic, normocephalic. EYES: Pupils equal round and reactive to light, extraocular movements intact, sclera anicteric, conjunctiva are normal. Eyelids were unremarkable. ENT: Nares patent, oropharynx clear without exudates. Moist mucous membranes. NECK: Normal range of motion, supple without lymphadenopathy or JVD. LUNGS: Unlabored respirations. Breath sounds clear to auscultation bilaterally and equal. No wheezes rales or rhonchi. HEART: Regular rate and rhythm without murmurs, rubs or gallops. ABDOMEN: Soft, nontender, normoactive bowel sounds. No guarding, no rebound. No masses appreciated. MUSCULOSKELETAL: Normal extremities with adequate strength and normal range of motion, no pitting or edema. No clubbing or cyanosis. NEUROLOGICAL: Patient is alert and oriented x 3. Symmetrical smile. Normal speech, normal gait. PSYCH: Normal mood, normal affect. SKIN: Warm, Dry, normal turgor. Patient has about 3 minor puncture wounds to the right upper leg, these are not deep, superficial, no active bleeding. She also has a small puncture wound to the right thumb, does involve the nail. There is no active bleeding here. She also has a minor abrasion noted to the left side of her abdomen, there are no puncture wounds here, only an abrasion. Limitations: no limitations Course Vital Signs 08/14/21 02:33 Temperature 100 F H Pulse Rate 121 H Respiratory 20 Rate Blood Pressure 156/95 O2 Sat by Pulse 99 Oximetry Medical Decision Making - Medical Decision Making Patient is a 36-year-old female here with history of anxiety, presenting after her roommate's dog bit her several different areas. She had small superficial puncture wounds to her right upper thigh, her right thumb and an abrasion to her left side. There is no active bleeding, these wounds were not deep. All patient's wounds were cleaned, a few are covered with Steri-Strips. Patient will be prescribed antibiotic and she will be stable for discharge. We discussed wound care. She is agreeable with this plan of care and she is stable for discharge. Case discussed with Dr. Cueva. Disposition Clinical Impression: Dog bite Disposition: HOME SELF-CARE Condition: Stable Instructions (If sedation given, give patient instructions): Animal Bite (ED) Additional Instructions: Please return to the Emergency Department if symptoms worsen or any other concerns. Take antibiotics as prescribed. Keep wounds clean and dry. May apply topical antibiotic. Do not soak in the bathtub. Follow-up with your family doctor. Prescriptions: Amoxicillin/Potassium Clav [Augmentin 875-125 Tablet] 1 tab PO BID 7 Days #14 tab Is patient prescribed a controlled substance at d/c from ED?: No Referrals: None,Stated [Primary Care Provider] - 1-2 days Time of Disposition: 03:03
== END 2021-08-14 03:02 | disposition home or self-care (01) ==
LOC: EC 02:20
DX: S71.131A Puncture wound without foreign body, right thigh, initial encounter (principal); S61.031A Puncture wound without foreign body of right thumb without damage to nail, initial encounter; S30.811A Abrasion of abdominal wall, initial encounter; J44.9 Chronic obstructive pulmonary disease, unspecified; K21.9 Gastro-esophageal reflux disease without esophagitis; F17.200 Nicotine dependence, unspecified, uncomplicated; F12.90 Cannabis use, unspecified, uncomplicated; F41.9 Anxiety disorder, unspecified; Z79.899 Other long term (current) drug therapy; Z83.3 Family history of diabetes mellitus; Z82.49 Family history of ischemic heart disease and other diseases of the circulatory system; Z88.6 Allergy status to analgesic agent; W54.0XXA Bitten by dog, initial encounter
CPT/HCPCS: 99283

== ENCOUNTER 2022-01-07 10:31 | Emergency (ER) | payer OTHER ==
[2022-01-07 11:07] VITALS: RESP 18
[2022-01-07] MEDS ORDERED: ACETAMINOPHEN TAB 500 MG TAB PO STA (11:30)
--- NOTE | 2022-01-07 11:30 | ED ---
General Adult HPI - General Chief complaint: ENT Stated complaint: ENT Time Seen by Provider: 01/07/22 11:25 Source: patient, RN notes reviewed, old records reviewed Mode of arrival: ambulatory Limitations: no limitations - History of Present Illness Initial comments: Well-appearing 36-year-old female alert and oriented 4 presents with complaints of sore throat since Thursday. She states she has not had any fevers. She states it feels like she has strep throat again and she has had it multiple times in the past. She took Motrin prior to arrival for pain and inflammation. -: days(s) (4) Severity scale (1-10): 6 Quality: other (sore) Consistency: constant Improves with: none Worsens with: none Associated Symptoms: denies other symptoms Treatments Prior to Arrival: NSAID - Related Data Home Medications Medication Instructions Recorded Confirmed Ibuprofen [Motrin Ib] 1,000 mg PO Q4H PRN 01/07/22 01/07/22 Allergies Allergy/AdvReac Type Severity Reaction Status Date / Time naproxen AdvReac Nausea & Verified 01/07/22 12:56 Vomiting nicotine [From Habitrol] AdvReac Rash/Hives Verified 01/07/22 12:56 Review of Systems ROS Statement: Those systems with pertinent positive or pertinent negative responses have been documented in the HPI. ROS Other: All systems not noted in ROS Statement are negative. Past Medical History Past Medical History: COPD, GERD/Reflux, Thyroid Disorder Additional Past Medical History / Comment(s): 06/19/15 Pt presented to [facility] ER with R side flank pain starting yesterday. She has fever today. She believed she had a UTI- she has urgency and frequency. She has also been nauseated. Other HX: enlarged thryoid, emphysema, herniated discs, DDD, scoliosis, chronic back pain, sleep disturbance-sleep paralysis. History of Any Multi-Drug Resistant Organisms: None Reported Past Surgical History: No Surgical Hx Reported Additional Past Surgical History / Comment(s): Leep excision of the ect/endocervix with colposcopy for high grade dysplasia of the cervix Past Anesthesia/Blood Transfusion Reactions: No Reported Reaction Past Psychological History: Anxiety Smoking Status: Current every day smoker Past Alcohol Use History: Occasional Past Drug Use History: Marijuana - Past Family History Father Family Medical History: CVA/TIA, Diabetes Mellitus, Hypertension, Myocardial Infarction ([place]) Mother Family Medical History: Diabetes Mellitus, Hypertension General Exam Limitations: no limitations General appearance: alert, in no apparent distress Head exam: Present: atraumatic, normocephalic, normal inspection Eye exam: Present: normal appearance. Absent: scleral icterus, conjunctival injection ENT exam: Present: mucous membranes moist Expanded Mouth exam: Present: normal external inspection, tongue normal, tongue elevation. Absent: drooling, trismus, muffled voice Throat exam: tonsillar erythema, tonsillomegaly. negative: tonsillar exudate, R peritonsillar mass, L peritonsillar mass Neck exam: Present: normal inspection, tenderness, full ROM. Absent: meningismus, lymphadenopathy, thyromegaly Respiratory exam: Present: normal lung sounds bilaterally. Absent: respiratory distress, wheezes, rales, rhonchi, accessory muscle use, decreased breath sounds Cardiovascular Exam: Present: regular rate Neurological exam: Present: alert, oriented X3 Psychiatric exam: Present: normal affect, normal mood Skin exam: Present: warm, dry, intact. Absent: cyanosis, diaphoretic Course Vital Signs 01/07/22 01/07/22 11:05 13:46 Temperature 98.6 F 100.3 F H Pulse Rate 86 75 Respiratory 18 18 Rate Blood Pressure 120/74 127/72 O2 Sat by Pulse 98 96 Oximetry Medical Decision Making - Medical Decision Making 36-year-old female alert and oriented 4 presents with complaints of sore throat since Thursday. Patient does have a low-grade fever at discharge. Rapid strep is negative. There is no evidence of tonsillar exudate or erythema. No cervical lymphadenopathy. She was offered a shot of Decadron for inflammation/pain and declined. I encouraged her to continue with Tylenol and Motrin for pain and fevers. She'll be notified if the strep culture report comes back positive. I believe this is likely a viral pharyngitis. I directed her to follow up with her primary care doctor this week return to the emergency room with any new or worsening symptoms. - Lab Data Lab Results 01/07/22 Range/Units 11:38 Group A Strep Rapid Negative (Negative) Disposition Clinical Impression: Sore throat Disposition: HOME SELF-CARE Condition: Good Instructions (If sedation given, give patient instructions): Pharyngitis (ED) Additional Instructions: Increase your fluid intake, take Tylenol and or Motrin as needed for pain. Follow-up with the primary care doctor next week. Return to the emergency room with any new or concerning symptoms including increased pain, fevers or inability to swallow. Is patient prescribed a controlled substance at d/c from ED?: No Referrals: None,Stated [Primary Care Provider] - 1-2 days Time of Disposition: 13:39
[2022-01-07 13:47] VITALS: BP 127/72; PULSE 75; TEMP 100.3
== END 2022-01-07 13:46 | disposition home or self-care (01) ==
LOC: EC 10:31
DX: J02.9 Acute pharyngitis, unspecified (principal); J44.9 Chronic obstructive pulmonary disease, unspecified; K21.9 Gastro-esophageal reflux disease without esophagitis; E07.9 Disorder of thyroid, unspecified; F41.9 Anxiety disorder, unspecified; F17.200 Nicotine dependence, unspecified, uncomplicated; F12.90 Cannabis use, unspecified, uncomplicated; Z88.5 Allergy status to narcotic agent; Z87.440 Personal history of urinary (tract) infections
CPT/HCPCS: 87081; 87430; 99283